=== PATIENT | female | born 1940 | race Caucasian/White ===

== ENCOUNTER 2019-10-17 07:42 | Observation (INO) | payer MEDICARE, BC, SELFPAY ==
[2019-10-17] VITALS (9 sets, daily range): BP systolic 117–160; BP diastolic 56–80; PULSE 80–94; RESP 14–20; TEMP 36.2–37.1; O2SAT 90–97; BMI 31.5
--- NOTE | ~2019-10-17 | XR_ITS ---
EXAMINATION: XR foot RT min 3V DATE: 10/18/2019 13:46 INDICATION: Dorsal pain, gout TECHNIQUE: Dorsoplantar, lateral, and 2 oblique views of the right foot were obtained. COMPARISON: Ankle radiograph from yesterday FINDINGS: Again noted is advanced osteoarthritis of the talonavicular joint. There is moderate osteoa rthritis at the calcaneal cuboid, first metatarsophalangeal, and tibiotalar joints. No fracture is id entified. The soft tissues are unremarkable. There is a plantar calcaneal enthesophyte. IMPRESSION: 1. Polyarticular osteoarthritis without acute findings. Reviewed, dictated and finalized at location A. RAMMING INTERN
--- NOTE | ~2019-10-17 | XR_ITS ---
EXAMINATION: XR ankle RT min 3V DATE: 10/17/2019 08:00 INDICATION: Right ankle pain and swelling TECHNIQUE: Anteroposterior, oblique, mortise, and lateral views of the right ankle were obtained. COMPARISON: None. FINDINGS: There is loss of bone stock along the inferior and lateral aspects of the navicula with advanced oste oarthritis at the talonavicular joint. Unclear whether the destructive change of the bone or subluxat ion or secondary to the osteoarthritis or the osteoarthritis or secondary to chronic fracture or jhonny lignment. Additional less severe mild to moderate osteoarthritis at multiple additional joints includ ing the ankle, calcaneocuboid and first metatarsophalangeal joints. No acute fracture. Small plantar calcaneal spur. Small heterotopic ossicle versus phlebolith along the lateral margin of the lateral m alleolus. IMPRESSION: 1. No acute osseous abnormality. 2. Polyarticular osteoarthritis, advanced at the talonavicular joint. Reviewed, dictated and finalized at location A. ID GROWER
--- NOTE | 2019-10-17 08:09 | ED.LOWEXIN ---
HPI - Extremity Injury (Lower) General Chief Complaint: Extremity Injury, Lower Stated Complaint: ankle pain Time Seen by Provider: 10/17/19 07:45 Source: patient and RN notes reviewed Mode of arrival: wheelchair Limitations: no limitations History of Present Illness HPI Narrative: Pt is a 79 y/o female presenting to the ED c/o ankle pain. Pt reports she woke up this morning at 0300 with severe rt ankle pain. Pt states she was exercising yesterday but denies any known injury to her rt ankle. Pt states he pain has alleviated since its onset this morning but currently rates it at an 8/10 on the pain scale. Pt also reports rt ankle erythema. Pt notes she applied CBD lotion to her skin to no relief on her pain. Pt states she is currently taking Eliquis. Pt states she has a Hx of previous rt ankle Fx. Onset (ago): hour(s) (5) Injury: Right: ankle Type of Injury: unknown Place: home Other symptoms: other (Rt ankle erythema) Related Data Home Medications Medication Instructions Recorded Confirmed allopurinol 150 mg PO BID 10/17/19 apixaban [Eliquis] mg 10/17/19 aspirin 10/17/19 carvedilol 10/17/19 empagliflozin [Jardiance] mg 10/17/19 folic acid 10/17/19 glipizide mg 10/17/19 losartan 10/17/19 metformin mg PO 10/17/19 simvastatin mg 10/17/19 spironolactone 10/17/19 Allergies Allergy/AdvReac Type Severity Reaction Status Date / Time codeine Allergy Unknown Other Verified 10/17/19 07:53 Review of Systems Review of Systems: All systems reviewed & are unremarkable except as noted in HPI and below Musculoskeletal: Musculoskeletal: Reports other (Rt ankle pain) Integumentary/Breasts: Skin/Breast: Reports erythema (Rt ankle) PMFSH Past Medical History Medical History A-fib Anemia Ankle fracture, right Arthritis Asthma Breast cancer Diabetes mellitus Diverticulitis Gout History of chemotherapy HLD (hyperlipidemia) HTN (hypertension) Ulcer Surgical History Surgical History H/O cardiac catheterization H/O lumpectomy Rt H/O: hysterectomy History of genitourinary surgery Bladder repair Status post ORIF of fracture of ankle Rt Family History Family History Other Cerebrovascular accident Family history of arthritis Family history of cardiovascular disease Hypertension Social History Social History Alcohol intake: current Exam Const: General: healthy appearing, no acute distress and alert Nutritional Appearance: well nourished HENMT: Mouth: Yes lip normal Eyes: Conjunctivae: conjunctivae normal Resp: Effort & Inspection: normal respiratory effort Back/Spine/Pelvis: Other: Full ROM Skin: General skin exam: normal color Other: Warm; Dry Neuro: General: patient oriented x3 Speech: normal speech Extrem: Left lower extremity: foot (Swelling and tenderness over dorsal aspect of mid foot with minimal redness) Psych: Mental Status: mental status grossly normal Affect: normal affect Course Consultations Consultation #1: Discussed case with Hospitalist EPIDEMIOLOGIST Debbie Basurto. Accepted the pt for admission. Date: 10/17/19 Time: 13:45 Vital Signs Vital signs: Vital Signs Temperature 36.9 C 10/17/19 07:45 Pulse Rate 80 10/17/19 07:45 Respiratory Rate 18 10/17/19 07:45 Blood Pressure 160/80 H 10/17/19 07:45 Pulse Oximetry 97 10/17/19 07:45 Temperature 36.3 C L 10/17/19 15:13 Pulse Rate 88 10/17/19 15:13 Respiratory Rate 14 10/17/19 15:13 Blood Pressure 138/61 10/17/19 15:13 Pulse Oximetry 93 10/17/19 15:13 MDM - Extremity Injury (Lower) MDM Narrative Medical decision making narrative: Attempted to get the patient ready for discharge. She was unable to ambulate or even bear weight on the affected foot. She will need to be admitted for observation due to decreased m
[2019-10-17] MEDS: TRAMADOL HCL 50 MG TABLET PO (09:13)
[2019-10-17 13:21] LABS: Basophils Percent Auto 0.4 % (0.2-1.2); Eosinophils Percent Auto 0.4 % (0-4.4); Hematocrit 37.1 % (37.0-47.0); Hemoglobin 11.6 g/dL (12.0-15.0); Immature Granulocyte Absolute 0.03 K/mm3 (0.00-0.031); Immature Granulocyte Percent A 0.4 % (0-0.5); Lymphocytes Absolute Auto 1.16 K/mm3 (0.9-3.2); Lymphocytes Percent Auto 13.6 % (18.3-44.2); Mean Corpuscular HGB Conc 31.3 g/dl (32-36); Mean Corpuscular Hemoglobin 27.8 pg (26-34); Mean Corpuscular Volume 88.8 fl (80-100); Mean Platelet Volume 9.6 fl (7.4-10.4); Monocytes Absolute Auto 0.8 K/mm3 (0.1-0.6); Monocytes Percent Auto 9.5 % (2.6-8.5); Neutrophils Absolute Auto 6.5 K/mm3 (1.3-6.7); Neutrophils Percent Auto 75.7 % (45.5-73.1); Platelet Count Result 236 k/mm3 (150-375); Red Blood Count 4.18 M/mm3 (4.2-5.4); Red Cell Distribution Width 13.8 % (11.5-14.5); White Blood Count 8.6 K/mm3 (4.5-10.0)
[2019-10-17] MEDS: methylPREDNISolone SOD SUCC 125 MG VIAL IV PUSH (13:22)
[2019-10-17 13:35] LABS: Blood Urea Nitrogen 21 mg/dL (7-17); Calcium 9.7 mg/dL (8.4-10.2); Carbon Dioxide 25 mmol/L (22-30); Chloride 97 mmol/L (98-107); Estimated CRCL calculation 50 ml/min; Estimated Glomerular Filt Rate > 60; Glucose 249 mg/dL (65-105); Potassium 4.3 mmol/L (3.4-5.0); Sodium 139 mmol/L (137-145); Uric Acid 5.1 mg/dL (2.5-7.5)
--- NOTE | 2019-10-17 16:12 | PC.NURSE ---
Pt admitted from the ER to room 253,resting in bed without any complaints. Call light in reach.
[2019-10-17 17:12] LABS: Glucose Point of Care 252 (65-105)
[2019-10-17 21:33] LABS: Glucose Point of Care 350 (65-105)
[2019-10-17] MEDS: INSULIN ASPART (*BKC) 100 UNITS/ML 10 UNITS SUB-Q (22:09)
--- NOTE | 2019-10-17 23:07 | PM.IMHP ---
H&P: HPI History of Present Illness Chief complaint: gout Narrative: Cynthia Mcqueen is a 79 year old female who has a past medical history of gout is on allopurinol. The patient stated that she went to the gym yesterday and rode a recumbent bike for about 2 hours. The patient states that she wears fausto she use and is usually pretty good for feet. The patient stated that she woke up at 3:00 a.m. this morning was having severe pain on top of the right foot by her ankle. She has had a history of having a right ankle fracture in the past but not recently. Patient stated that she had a red great toe of few months ago which he thought was gout as well. Patient had an x-ray today that shows arthritis no acute osseous abnormality. Polyarticular osteoarthritis. Patient was started on prednisone she was given IV Solu-Medrol 1st. She said that it is less red than what it was when she came into the emergency room. However the patient stated that she absolutely could not go home because she was unable to walk on the right foot. I suggested that the patient be given crutches and sent home on medication. However the patient insisted that she would not be able to tolerate this at home and she was in severe pain. ED physician was concerned that the patient could possibly fall if she went home and was unable to ambulate on that right foot. Patient was admitted as observation. She is already having less pain and less redness. Date of service 10/17/2019. Fentanyl in the emergency room and tramadol. She was also given insulin for high blood sugar in the 300s. Review of Systems Review of Systems: All systems reviewed & are unremarkable except as noted in HPI and below Constitutional: Constitutional: Reports as per HPI and Reports no additional constitutional complaints Eyes: Eyes: Reports as per HPI and Reports no additional eye complaints ENT: Reports system reviewed and no additional complaints, except as documented and Reports Normal hearing present Cardiovascular: Cardiovascular: Reports no additional cardiovascular complaints Respiratory: Respiratory: Reports no additional respiratory complaints and Reports no additional respiratory complaints Gastrointestinal: Gastrointestinal: Reports as per HPI and Reports no additional gastrointestinal complaints Musculoskeletal: Musculoskeletal: Reports no additional musculoskeletal complaints Integumentary/Breasts: Skin/Breast: Reports system reviewed and no additional complaints, except as docu and Reports as per HPI Neurologic: Reports system reviewed and no additional complaints, except as documented, Reports as per HPI and Reports Normal hearing present Psychiatric: Psychiatric: Reports no additional psychiatric complaints and Reports as per HPI Endocrine: Endocrine: Reports no additional endocrine complaints Hematologic/Lymphatic: Hematologic/Lymphatic: Reports no additional hematologic/lymphatic complaints Allergic/Immunologic: Allergic/Immunologic: Reports no additional allergic/immunologic complaints [facility] Past Medical History Medical History (Updated 10/17/19 @ 23:20 by Debbie Basurto NP) A-fib Paroxysmal Anemia Ankle fracture, right ORIF Arthritis Asthma Breast cancer Status post lumpectomy. Chemo and radiation. Chemotherapy-induced neuropathy Congestive heart failure Diabetes mellitus Diverticulitis Gout History of chemotherapy With breast cancer HLD (hyperlipidemia) HTN (hypertension) Ulcer Surgical History Surgical History (Updated 10/17/19 @ 23:14 by Debbie Basurto NP) H/O cardiac catheterization No intervention H/O lumpectomy Rt H/O: hysterectomy History of genitourinary surgery Bladder repair Status post ORIF of fracture of ankle Rt Family History Family History (Updated 10/17/19 @ 23:15 by Debbie Basurto NP) Mother Alzheimer's dementia Cerebrovascular accident Hypertension Father Lymphoma Cerebrovascular accident Hypert
[2019-10-17] MEDS: carvediloL 6.25 MG TABLET PO (23:43)
[2019-10-17] MEDS: APIXABAN 5 MG TABLET PO (23:43)
[2019-10-17] MEDS: allopurinoL 100 MG TABLET PO (23:44)
[2019-10-17] MEDS: ONDANSETRON INJ 4 MG/2 ML VIAL IV PUSH (23:50)
[2019-10-17] MEDS: ACETAMINOPHEN 325 MG TABLET 650 MG PO (23:50)
[2019-10-18 00:05] LABS: Glucose Point of Care 287 (65-105)
[2019-10-18 05:59] VITALS: BP 129/67; PULSE 83; RESP 20; TEMP 36.4; O2SAT 94
[2019-10-18 06:00] LABS: Basophils Percent Auto 0.1 % (0.2-1.2); Hematocrit 35.1 % (37.0-47.0); Immature Granulocyte Absolute 0.04 K/mm3 (0.00-0.031); Immature Granulocyte Percent A 0.5 % (0-0.5); Lymphocytes Absolute Auto 0.76 K/mm3 (0.9-3.2); Lymphocytes Percent Auto 9.3 % (18.3-44.2); Mean Corpuscular HGB Conc 31.3 g/dl (32-36); Mean Corpuscular Hemoglobin 27.3 pg (26-34); Mean Corpuscular Volume 87.1 fl (80-100); Mean Platelet Volume 9.8 fl (7.4-10.4); Monocytes Absolute Auto 0.5 K/mm3 (0.1-0.6); Monocytes Percent Auto 6.6 % (2.6-8.5); Neutrophils Absolute Auto 6.8 K/mm3 (1.3-6.7); Neutrophils Percent Auto 83.5 % (45.5-73.1); Platelet Count Result 231 k/mm3 (150-375); Red Blood Count 4.03 M/mm3 (4.2-5.4); Red Cell Distribution Width 13.8 % (11.5-14.5); White Blood Count 8.2 K/mm3 (4.5-10.0)
[2019-10-18 06:18] LABS: Alanine Aminotransferase 18 U/L (4-35); Albumin Level 3.8 g/dL (3.5-5.1); Alkaline Phosphatase 67 U/L (38-126); Aspartate Amino Transferase 19 U/L (14-36); Bilirubin,Total 0.4 mg/dL (0.2-1.3); Blood Urea Nitrogen 27 mg/dL (7-17); Calcium 9.3 mg/dL (8.4-10.2); Carbon Dioxide 24 mmol/L (22-30); Chloride 98 mmol/L (98-107); Estimated CRCL calculation 50 ml/min; Estimated Glomerular Filt Rate > 60; Glucose 246 mg/dL (65-105); Magnesium 1.7 mg/dL (1.6-2.3); Potassium 4.2 mmol/L (3.4-5.0); Sodium 136 mmol/L (137-145)
[2019-10-18 07:26] LABS: Thyroid Stimulating Hormone Reflex 0.679 uIU/mL (0.465-4.68)
[2019-10-18 07:51] LABS: Glucose Point of Care 215 (65-105)
[2019-10-18 08:00] VITALS: PULSE 83; RESP 20; O2SAT 94
[2019-10-18] MEDS: MICONAZOLE NITRATE 2% CREAM 30 GM TUBE 1 APPLIC TOPICAL ×2 (08:18→17:02)
[2019-10-18] MEDS: FAMOTIDINE 20 MG/2 ML VIAL IV PUSH (08:18)
[2019-10-18] MEDS: FOLIC ACID 1 MG TABLET PO (08:19)
[2019-10-18] MEDS: ASPIRIN 81 MG CHEWABLE TABLET PO (08:19)
[2019-10-18] MEDS: glipiZIDE 5 MG TABLET 10 MG PO ×2 (08:19→16:57)
[2019-10-18] MEDS: predniSONE 20 MG TABLET 60 MG PO (08:19)
[2019-10-18] MEDS: SPIRONOLACTONE 25 MG TABLET PO (08:20)
[2019-10-18] MEDS: allopurinoL 100 MG TABLET PO ×2 (08:20→16:57)
[2019-10-18] MEDS: carvediloL 6.25 MG TABLET PO ×2 (08:20→16:57)
[2019-10-18] MEDS: SIMVASTATIN 20 MG TABLET PO (08:20)
[2019-10-18] MEDS: APIXABAN 5 MG TABLET PO ×2 (08:20→16:57)
[2019-10-18] MEDS: LOSARTAN POTASSIUM 50 MG TABLET PO (08:20)
[2019-10-18] MEDS: metFORMIN HCL XR 500 MG TAB.SR.24H 1000 MG PO ×2 (08:20→16:57)
[2019-10-18] MEDS: INSULIN ASPART (*BKC) 100 UNITS/ML SUB-Q ×3 (08:21→16:59)
[2019-10-18] MEDS: ACETAMINOPHEN 325 MG TABLET 650 MG PO (11:27)
[2019-10-18 12:55] LABS: Glucose Point of Care 358 (65-105)
--- NOTE | 2019-10-18 13:55 | PM.IMPN ---
Subjective Date/time seen: 10/18/19 0900 Objective Data Vital Signs Vital Signs: Vital Signs - 24 hr 10/17/19 14:35 10/17/19 15:13 10/17/19 17:17 Temperature 97.5 F L 97.3 F L 97.9 F Pulse Rate 85 88 80 Respiratory Rate 16 14 16 Blood Pressure 134/56 L 138/61 143/64 H Pulse Oximetry 93 93 94 10/17/19 22:00 10/17/19 23:43 10/18/19 05:59 Temperature 97.2 F L 97.6 F Pulse Rate 89 89 83 Respiratory Rate 20 20 Blood Pressure 132/69 129/67 Pulse Oximetry 90 94 10/18/19 08:00 Temperature Pulse Rate 83 Respiratory Rate 20 Blood Pressure Pulse Oximetry 94 Intake/Output Intake/Output: Intake & Output 10/15/19 10/16/19 10/17/19 10/18/19 23:59 23:59 23:59 23:59 Intake Total 430 Output Total 400 Balance -400 430 Meds/Results Medications: Active Medications Generic Name Dose Route Start Last Admin Trade Name Freq PRN Reason Stop Dose Admin Acetaminophen 650 mg 10/17/19 23:42 10/18/19 11:27 Tylenol Tablet PO 650 mg Q4H PRN Administration Mild Pain (1-3) or Fever Allopurinol 100 mg 10/17/19 23:10 10/18/19 08:20 Zyloprim PO 100 mg BID DEISI Administration Apixaban 5 mg 10/17/19 23:15 10/18/19 08:20 Eliquis PO 5 mg BID DEISI Administration Aspirin 81 mg 10/18/19 09:00 10/18/19 08:19 Aspirin Chewable PO 81 mg DAILY DEISI Administration Carvedilol 6.25 mg 10/17/19 23:15 10/18/19 08:20 Coreg PO 6.25 mg BID DEISI Administration Cyclosporine 1 drop 10/17/19 23:05 10/18/19 08:20 Restasis EACH EYE 1 drop Q12HR DEISI Administration Dextrose 12.5 gm 10/17/19 23:21 Dextrose 50% Syringe IV PUSH PRN PRN Hypoglycemia Protocol Famotidine 20 mg 10/18/19 09:00 10/18/19 08:18 Pepcid Iv IV PUSH 20 mg Q12HR DEISI Administration Fentanyl Citrate 50 mcg 10/17/19 13:46 Sublimaze IV PUSH Q2H PRN Pain Rated 7-10 Folic Acid 1 mg 10/18/19 09:00 10/18/19 08:19 Folic Acid PO 1 mg DAILY [facility] Administration Glipizide 10 mg 10/18/19 09:00 10/18/19 08:19 Glucotrol PO 10 mg BID DEIIS Administration Glucagon 1 mg 10/17/19 23:21 Glucagon For Inj IM PRN PRN Hypoglycemia Protocol Glucose 15 gm 10/17/19 23:21 Glutose 15 PO PRN PRN Hypoglycemia Protocol Dextrose 1,000 mls @ 100 mls/hr 10/17/19 23:21 Dextrose 5% 1,000 Ml IVPB PRN PRN Hypoglycemia Protocol Insulin Aspart 3 - 6 units 10/18/19 08:00 10/18/19 12:48 Novolog SUB-Q 6 units TIDWM [facility] Administration Protocol Losartan Potassium 50 mg 10/18/19 09:00 10/18/19 08:20 Cozaar PO 50 mg DAILY [facility] Administration Metformin HCl 1,000 mg 10/18/19 09:00 10/18/19 08:20 Glucophage Xr PO 1,000 mg BID [facility] Administration Miconazole Nitrate 1 applic 10/18/19 09:00 10/18/19 08:18 Miconazole Nitrate 2% Cream TOPICAL 1 applic BID [facility] Administration Non-Formulary Medication 10 mg 10/18/19 09:00 Empagliflozin [Jardiance] PO 11/17/19 09:01 DAILY [facility] Ondansetron HCl 4 mg 10/17/19 23:35 10/17/19 23:50 Zofran Inj IV PUSH 4 mg Q4H PRN Administration Nausea And Vomiting Prednisone 60 mg 10/18/19 08:00 10/18/19 08:19 Prednisone PO 60 mg DAILY@08 [facility] Administration Simvastatin 20 mg 10/18/19 09:00 10/18/19 08:20 Zocor PO 20 mg DAILY [facility] Administration Spironolactone 25 mg 10/18/19 09:00 10/18/19 08:20 Aldactone PO 25 mg DAILY [facility] Administration Radiology Results: ITS Impressions Ankle X-Ray 10/17/19 08:01 IMPRESSION: 1. No acute osseous abnormality. 2. Polyarticular osteoarthritis, advanced at the talonavicular joint. Labs Labs: Laboratory Results - last 24 hr 10/17/19 10/17/19 10/17/19 17:09 21:24 23:47 WBC RBC Hgb Hct MCV MCH MCHC RDW Plt Count MPV Immature Gran % (Auto) Neut % (Auto) Lymph % (Auto) Mo
[2019-10-18 14:00] VITALS: BP 98/46; PULSE 73; RESP 12; TEMP 36; O2SAT 100
[2019-10-18 17:23] LABS: Glucose Point of Care 316 (65-105)
--- NOTE | 2019-10-18 19:27 | PM.DS ---
DS: Diagnosis Admitting Diagnosis Admitting Diagnosis: Gout, unspecified Discharge Diagnosis (1) Gout: Qualifiers: Gout site: ankle Gout etiology: unspecified cause Laterality: right Chronicity: acute Qualified Code(s): M10.9 - Gout, unspecified Code(s): M10.9 - Gout, unspecified Status: Acute Assessment and Plan: Date of Service 10/18/19: Ms. Demetrio Mcqueen is a 79yo F with history of gout, osteoarthritis, hypertension, atrial fibrillation, and non insulin dependent type 2 diabetes mellitus who presented to the ED for evaluation of right ankle pain, redness, and swelling. She was admitted for observation as she felt that she could not discharge home from the ED due to pain and difficulty ambulating. She was treated with IV solu-medrol in the ED then started on oral prednisone. The following morning she noted the pain, redness and swelling was improved but she was still having difficulty walking. She declined crutches due to a previous shoulder injury. She reported she lives at home with her and has a walker at home she can use. She is known to take allopurinol and her uric acid level was within normal limits. Imaging of the right ankle and foot showed polyarticular osteoarthritis without acute osseous abnormalities. She is known to take Eliquis due to A fib, therefore not a great candidate for treatment with NSAIDs. She worked with physical therapy and walked contact guard in the room. Blood sugars were elevated, likely secondary to steroid use, and treated with sliding scale insulin. She was hemodynamically stable for discharge 10/18/19 with instructions for short-interval follow up with PCP this week. She was noted to have 2 prescriptions already on her discharge paperwork from the ED provider, as she was initially about to be discharged from the ED before the decision was made for her to admit to observation. She was instructed to use those scripts (medrol dose pack and tramadol) from the ED provider and follow up with PCP. Dx: Acute on chronic gout, right ankle (2) Osteoarthritis of ankle and foot: Qualifiers: Laterality: right Qualified Code(s): M19.071 - Primary osteoarthritis, right ankle and foot Code(s): M19.079 - Primary osteoarthritis, unspecified ankle and foot Status: Chronic (3) HLD (hyperlipidemia): Qualifiers: Hyperlipidemia type: unspecified Qualified Code(s): E78.5 - Hyperlipidemia, unspecified Code(s): E78.5 - Hyperlipidemia, unspecified Status: Chronic Assessment and Plan: Continue with simvastatin. (4) HTN (hypertension): Qualifiers: Hypertension type: essential hypertension Qualified Code(s): I10 - Essential (primary) hypertension Code(s): I10 - Essential (primary) hypertension Status: Chronic Assessment and Plan: Continue with Aldactone losartan and Coreg (5) A-fib: Qualifiers: Atrial fibrillation type: paroxysmal Qualified Code(s): I48.0 - Paroxysmal atrial fibrillation Code(s): I48.91 - Unspecified atrial fibrillation Status: Chronic Assessment and Plan: Maintained on home coreg and Eliquis. Rate controlled. (6) Congestive heart failure: Qualifiers: Heart failure type: unspecified Heart failure chronicity: unspecified Qualified Code(s): I50.9 - Heart failure, unspecified Code(s): I50.9 - Heart failure, unspecified Status: Chronic Assessment and Plan: Continue with Aldactone and Coreg (7) Diabetes mellitus: Qualifiers: Diabetes mellitus type: type 2 Diabetes mellitus usp insulin use: without usp use Diabetes mellitus complication status: without complication Qualified Code(s): E11.9 - Type 2 diabetes mellitus without complications Code(s): E11.9 - Type 2 diabetes mellitus without complications Status: Chronic Assessment and Plan: Treated with her home metformin
== END 2019-10-18 19:02 | disposition home or self-care (01) ==
LOC: ANHED 13:59 → ANH2MED 15:19
PROVIDERS: Nurse Practitioner; Admitting Provider Internal Medicine; Emergency Provider Emergency Medicine; Visit Provider Physician Assistant
DX: M10.9 Gout, unspecified (principal); M19.071 Primary osteoarthritis, right ankle and foot; E78.5 Hyperlipidemia, unspecified; I11.0 Hypertensive heart disease with heart failure; I50.9 Heart failure, unspecified; I48.0 Paroxysmal atrial fibrillation; E11.9 Type 2 diabetes mellitus without complications; D64.9 Anemia, unspecified; G62.0 Drug-induced polyneuropathy; T45.1X5S Adverse effect of antineoplastic and immunosuppressive drugs, sequela; Z79.01 Long term (current) use of anticoagulants; Z79.82 Long term (current) use of aspirin; Z79.84 Long term (current) use of oral hypoglycemic drugs; Z79.899 Other long term (current) drug therapy; Z85.3 Personal history of malignant neoplasm of breast; Z87.81 Personal history of (healed) traumatic fracture
CPT/HCPCS: 36415; 73610; 73630; 80048; 80053; 83735; 84443; 84550; 85025; 96374; 96375; 97161; 97165; 99285; A9270; G0378; J1815; J2405; J2930; J3010; J7512

== ENCOUNTER → 2019-12-15 12:20 | Outpatient (CLI) | payer MEDICARE, BC, SELFPAY ==
--- NOTE | ~2019-12-15 | XR_ITS ---
EXAMINATION: XR ankle LT min 3V DATE: 12/15/2019 12:37 INDICATION: Left ankle contusion TECHNIQUE: Anteroposterior, oblique, mortise, and lateral views of the left ankle were obtained. COMPARISON: None. FINDINGS: Alignment is normal. No fracture. Mild osteoarthritis at the tarsal metatarsal joints. Soft tissue sw elling about the ankle overlying both the medial and lateral malleoli. Increased density anterior to the tibiotalar joint line suggesting presence of an ankle joint effusion. Small plantar calcaneal spu r. IMPRESSION: 1. Likely left ankle joint effusion. No acute osseous abnormality. Reviewed, dictated and finalized at location A.
== END ==
PROVIDERS: PCP Family Medicine; Visit Provider Family Medicine
DX: S90.02XA Contusion of left ankle, initial encounter (principal); X58.XXXA Exposure to other specified factors, initial encounter
CPT/HCPCS: 73610

== ENCOUNTER 2020-02-17 09:36 | Outpatient (CLI) | payer MEDICARE, BC, SELFPAY ==
--- NOTE | ~2020-02-17 | DEXA_ITS ---
Bone Density Report Name: Cynthia Sotelo Age: 80 Sex: Female Ethnicity: White Date of : 1940 Indication: postmenopausal; height loss; prior fracture; cancer; asthma or emphysema; hysterectomy; Referring Provider: PHYSICIAN NOT ON STAFF Study: Bone densitometry was performed. Exam Date: February 17, 2020 Accession number: [id number] Bone Density: Region BMD T-score Z-score Classification AP Spine (L1, L2) 1.344 3.3 5.7 Normal Femoral Neck (Left) 0.801 -0.4 1.8 Normal Total Hip (Left) 0.967 0.2 2.2 Normal Total Hip Bilateral Avg 0.945 0.0 2.0 Normal Femoral Neck (Right) 0.774 -0.7 1.5 Normal Total Hip (Right) 0.922 -0.2 1.8 Normal World Health Organization criteria for BMD impression classify patients as: Normal (T-score at or above -1.0), Osteopenia (T-score between -1.0 and -2.5), or Osteoporosis (T-score at or below -2.5). 10-year Fracture Risk: FRAX not reported because: All T-scores for Spine Total, Hip Total, Femoral Neck at or above -1.0 Previous Exams: Region Exam Age BMD T-score BMD Change BMD Change Date g/cm2 vs Baseline vs Previous AP Spine(L1, L2) 02/17/2020 80 1.344 3.3 0.149(12.5%)# -0.011(-0.8%) 02/13/2018 78 1.355 3.4 0.160(13.4%)# 0.127(10.3%)* 05/17/2015 75 1.228 2.3 0.033(2.8%)# -0.002(-0.1%)# 04/19/2011 71 1.230 2.3 0.035(2.9%)* 0.000(0.0%) 04/18/2009 69 1.230 2.3 0.035(2.9%)* -0.034(-2.7%)* 02/25/2007 67 1.264 2.6 0.069(5.8%)* 0.039(3.1%)* 12/09/2003 63 1.225 2.2 0.030(2.5%)* 0.030(2.5%)* 09/01/2001 61 1.195 2.0 Total Hip(Left) 02/17/2020 80 0.967 0.2 -0.147(-13.2%) -0.048(-4.7%)* 02/13/2018 78 1.015 0.6 -0.099(-8.9%)# -0.058(-5.4%)* 05/17/2015 75 1.072 1.1 -0.041(-3.7%)# 0.014(1.3%)# 04/19/2011 71 1.059 1.0 -0.055(-5.0%)* -0.015(-1.4%) 04/18/2009 69 1.074 1.1 -0.040(-3.6%)* -0.017(-1.5%) 02/25/2007 67 1.090 1.2 -0.024(-2.1%) -0.008(-0.8%) 12/09/2003 63 1.099 1.3 -0.015(-1.4%) -0.015(-1.4%) 09/01/2001 61 1.114 1.4 Total Hip(Right) 02/17/2020 80 0.922 -0.2 -0.205(-18.2%) -0.054(-5.6%)* 02/13/2018 78 0.976 0.3 -0.151(-13.4%) 0.007(0.7%) 05/17/2015 75 0.970 0.2 -0.157(-14.0%) -0.076(-7.2%)# 04/19/2011 71 1.045 0.8 -0.082(-7.3%)* 0.013(1.3%) 04/18/2009 69 1.032 0.7 -0.095(-8.4%)* -0.061(-5.6%)* 02/25/2007 67 1.093 1.2 -0.034(-3.0%)* -0.011(-1.0%) 12/09/2003 63 1.104 1.3 -0.023(-2.1%) -0.023(-2.1%) 09/01/2001 61 1.127 1.5
== END 2020-02-17 09:37 | disposition home or self-care (01) ==
LOC: ANHIMG 09:48
PROVIDERS: PCP Family Medicine
DX: C50.911 Malignant neoplasm of unspecified site of right female breast (principal); Z17.1 Estrogen receptor negative status [ER-]; Z79.899 Other long term (current) drug therapy; Z78.0 Asymptomatic menopausal state; S82.891D Other fracture of right lower leg, subsequent encounter for closed fracture with routine healing; X58.XXXD Exposure to other specified factors, subsequent encounter; Z85.3 Personal history of malignant neoplasm of breast; Z90.710 Acquired absence of both cervix and uterus; Z92.29 Personal history of other drug therapy
CPT/HCPCS: 77080

== ENCOUNTER 2022-03-20 12:19 | Outpatient (CLI) | payer MEDICARE, SELFPAY ==
--- NOTE | ~2022-03-20 | DEXA_ITS ---
Bone Density Report Name: LAZARO MICHELLE Age: 82 Sex: Female Ethnicity: White Date of : 1940 Indication: postmenopausal; screening for osteoporosis; height loss; prior fracture; hysterectomy; Referring Provider: LEIAOSCAR Study: Bone densitometry was performed. Exam Date: March 20, 2022 Accession number: [id number] Bone Density: Region BMD T-score Z-score Classification AP Spine(L1, L2) 1.348 3.4 5.9 Normal Femoral Neck (Left) 0.773 -0.7 1.6 Normal Total Hip (Left) 0.956 0.1 2.2 Normal Femoral Neck (Right) 0.764 -0.8 1.5 Normal Total Hip (Right) 0.924 -0.1 1.9 Normal Total Hip Mean 0.940 0.0 2.1 Normal World Health Organization criteria for BMD impression classify patients as: Normal (T-score at or above -1.0), Osteopenia (T-score between -1.0 and -2.5), or Osteoporosis (T-score at or below -2.5). 10-year Fracture Risk: FRAX not reported because: All T-scores for Spine Total, Hip Total, Femoral Neck at or above -1.0 Previous Exams: Region Exam Age BMD T-score BMD Change BMD Change Date g/cm2 vs Baseline vs Previous AP Spine (L1-L2) 03/20/2022 82 1.348 3.4 0.119 (9.7%)* 0.004 (0.3%) 02/17/2020 80 1.344 3.3 0.116 (9.4%)* -0.011 (-0.8%) 02/13/2018 78 1.355 3.4 0.127 (10.3%)* 0.127 (10.3%)* 05/17/2015 75 1.228 2.3 Total Hip(Left) 03/20/2022 82 0.956 0.1 -0.116 (-10.8% -0.010 (-1.1%) 02/17/2020 80 0.967 0.2 -0.106 (-9.9%) -0.048 (-4.7%) 02/13/2018 78 1.015 0.6 -0.058 (-5.4%) -0.058 (-5.4%) 05/17/2015 75 1.072 1.1 Total Hip(Right) 03/20/2022 82 0.924 -0.1 -0.045 (-4.7%) 0.002 (0.3%) 02/17/2020 80 0.922 -0.2 -0.048 (-4.9%) -0.054 (-5.6%) 02/13/2018 78 0.976 0.3 0.007 (0.7%) 0.007 (0.7%) 05/17/2015 75 0.970 0.2 *Denotes significance at 95% confidence level, LSC for AP Spine = 0.022 g/cm2, LSC for Total Hip = 0.027 g/cm2 Clinical Information Provided by Patient: Has had a low trauma fracture Has the following medical conditions: Hysterectomy Patient maximum height was 65 Menopause Age: 54 Onset of menses at age 15 Number of children 2 Impression: The patient has normal bone mass. The patient has risk factors, including: previous fracture. No significant bone loss was observed. Discussion: BONE DENSITY IS ABOVE THE MINIMUM DESIRABLE LEVEL AT ALL SKELETAL SITES TESTED. This patient?s bone mineral density is above the
== END 2022-03-20 12:20 | disposition home or self-care (01) ==
PROVIDERS: PCP Family Medicine; Visit Provider Internal Medicine Medical Oncology
DX: Z78.0 Asymptomatic menopausal state (principal); Z92.29 Personal history of other drug therapy
CPT/HCPCS: 77080

== ENCOUNTER 2023-07-01 08:10 | Emergency (ER) | payer MEDICARE, SELFPAY ==
--- NOTE | ~2023-07-01 | CT_ITS ---
EXAMINATION: CT abdomen pelvis w con DATE: 07/01/2023 09:52 INDICATION: Left lower quadrant abdominal pain. Vomiting. TECHNIQUE: Computed tomography (CT) of the abdomen and pelvis was performed with 100 mL Omnipaque 350 intravenous contrast. Automated exposure control and iterative reconstruction technique were employe d. The dose-length product was 796.24 mGy-cm. COMPARISON: None. FINDINGS: The visualized portions of the lung bases demonstrate mild atelectasis and mild chronic harish g disease. There is a pneumatocele in right lower lobe. No pleural effusion. The heart size is normal . There are coronary artery calcifications. No pericardial effusion. There are surgical changes in ri ght breast. The liver, gallbladder, spleen, pancreas, and adrenal glands are normal. There is cortica l thinning of the kidneys. There is a right inguinal hernia containing fat. There is wall thickening of the rectosigmoid, consistent with colitis. There are scattered diverticula in the colon. The appen kenroy is not visualized. Aortic atherosclerosis is noted. There is a small sliding hiatal hernia. There are no pathologically enlarged lymph nodes. There is no free intraperitoneal fluid. There is lumbar levoscoliosis and severe spondylosis. IMPRESSION: 1. Wall thickening of the rectosigmoid, consistent with colitis. Reviewed, dictated and finalized at location E.
[2023-07-01 08:15] VITALS: BP 130/61; PULSE 68; RESP 16; TEMP 36.1; O2SAT 100
[2023-07-01 08:18] VITALS: BP 130/61; PULSE 72; RESP 18; O2SAT 99
[2023-07-01] MEDS: ONDANSETRON INJ 4 MG/2 ML VIAL IV PUSH (08:29)
[2023-07-01] MEDS: SODIUM CHLORIDE 0.9% IV 1,000 ML 999 ML IV CONT (08:31)
[2023-07-01 08:34] VITALS: BP 108/57; PULSE 65; RESP 20; O2SAT 96
[2023-07-01 08:38] LABS: Basophils Absolute Auto 0.1 K/mm3 (0.0-0.1); Basophils Percent Auto 0.6 % (0.2-1.2); Eosinophils Absolute Auto 0.2 K/mm3 (0-0.3); Eosinophils Percent Auto 2.4 % (0-4.4); Hematocrit 37.4 % (37.0-47.0); Hemoglobin 11.1 g/dL (12.0-15.0); Immature Granulocyte Absolute 0.05 K/mm3 (0.00-0.031); Immature Granulocyte Percent A 0.6 % (0-0.5); Lymphocytes Absolute Auto 1.79 K/mm3 (0.9-3.2); Lymphocytes Percent Auto 22.5 % (18.3-44.2); Mean Corpuscular HGB Conc 29.7 g/dl (32-36); Mean Corpuscular Hemoglobin 27.8 pg (26-34); Mean Corpuscular Volume 93.7 fl (80-100); Mean Platelet Volume 9.5 fl (7.4-10.4); Monocytes Absolute Auto 0.7 K/mm3 (0.1-0.6); Monocytes Percent Auto 8.6 % (2.6-8.5); Neutrophils Absolute Auto 5.2 K/mm3 (1.3-6.7); Neutrophils Percent Auto 65.3 % (45.5-73.1); Platelet Count Result 205 k/mm3 (150-375); Red Blood Count 3.99 M/mm3 (4.2-5.4); Red Cell Distribution Width 17.2 % (11.5-14.5); White Blood Count 7.9 K/mm3 (4.5-10.0)
[2023-07-01 08:41] LABS: INR 1.3; Partial Thromboplastin Time 30.6 SECONDS (22.3-36.8); Prothrombin Time 17.4 Seconds (11.1-14.7)
[2023-07-01 08:47] VITALS: BP 101/50; PULSE 66; RESP 14; O2SAT 91
[2023-07-01 08:50] LABS: Anisocytosis 1+ (NORMAL); Platelet Estimate Adequate (Adequate); Schistocytes None Seen (NORMAL)
[2023-07-01 08:53] LABS: Appearance Urine Cloudy (Clear); Bacteria Urine None Seen /hpf; Bilirubin Urine Negative (Negative); Blood Urine Negative (Negative); Color Urine Dark Yellow (Yellow); Glucose Urine UA Negative (Negative); Ketones Urine Trace mg/dL (Negative); Leukocyte Esterase Ur Trace LEU/UL (Negative); Nitrate Urine Negative (Negative); Protein Urine 1+ mg/dL (Negative); RBC Urine 0-2 /hpf (0-2); Specific Grav Ur 1.025 (1.001-1.035); Squamous Epithelial Cell Urine Moderate /hpf (Few); Urobilinogen Urine 0.2 mg/dL (<2.0)
[2023-07-01 08:54] LABS: Add Urine Microscopic? YES
[2023-07-01 08:59] LABS: Need Manual Microscopic Reviewed
[2023-07-01 09:02] LABS: Lactic Acid Reflex 2.2 mmol/L (0.7-2.0)
[2023-07-01 09:03] LABS: Alanine Aminotransferase 15 U/L (6-35); Albumin Level 3.8 g/dL (3.5-5.1); Alkaline Phosphatase 81 U/L (38-126); Anion Gap 8 mmol/L (8-16); Aspartate Amino Transferase 21 U/L (14-36); Bilirubin,Total 0.4 mg/dL (0.2-1.3); Blood Urea Nitrogen 16 mg/dL (7-17); Calcium 9.5 mg/dL (8.4-10.2); Carbon Dioxide 24 mmol/L (22-30); Chloride 106 mmol/L (98-107); Estimated CRCL calculation 45 ml/min; Estimated Glomerular Filt Rate 60; Glucose 203 mg/dL (65-110); Lipase 112 U/L (23-300); Potassium 4.1 mmol/L (3.4-5.0); Sodium 138 mmol/L (137-145)
[2023-07-01 09:14] LABS: Troponin I < 0.012 ng/mL (0.000-0.034)
[2023-07-01 10:15] VITALS: BP 117/73; PULSE 69; RESP 20; O2SAT 98
--- NOTE | 2023-07-01 10:26 | ED.ABDPAIN ---
HPI - Abdominal Pain General Chief Complaint: Abdominal Pain Stated Complaint: abd pain Time Seen by Provider: 07/01/23 08:11 History of Present Illness HPI narrative: This is an 83-year-old female with history of A-fib and diabetes, brought in by EMS from home for abdominal pain. The patient states this morning, after taking a laxative, she had gradual increasing, sharp lower abdominal pain without radiation. By the time EMS arrived, she rated her pain 10/10. She states she recently started insulin and has had some constipation. Yesterday she started laxatives with loose stools and mild discomfort but has increased. She denies fevers, chills, shortness of breath or blood in stool. She denies vomiting. Related Data Home Medications Medication Instructions Recorded Confirmed allopurinol 100 mg tablet mg 07/01/23 apixaban 5 mg tablet (Eliquis) mg 07/01/23 aspirin 81 mg capsule mg 07/01/23 carvedilol 6.25 mg tablet mg 07/01/23 cyclosporine 0.05 % eye drops in a drp 07/01/23 dropperette (Restasis) ferrous sulfate 325 mg (65 mg mg 07/01/23 iron) tablet (FeroSul) glipizide 10 mg tablet mg 07/01/23 insulin glargine 100 subcut 07/01/23 unit-lixisenatide 33 mcg/mL subcutaneous pen (Soliqua 100/33) losartan 50 mg tablet mg 07/01/23 pen needle, diabetic 32 gauge x 07/01/23 07/01/23 5/32 (BD Nevin 2nd Gen Pen Needle) simvastatin 20 mg tablet mg 07/01/23 sitagliptin phosphate 50 mg tablet mg 07/01/23 (Januvia) spironolactone 25 mg tablet mg 07/01/23 tramadol 50 mg tablet mg 07/01/23 Allergies Allergy/AdvReac Type Severity Reaction Status Date / Time codeine AdvReac Unknown Verified 07/01/23 08:21 Review of Systems Review of Systems: CONSTITUTIONAL: Denies fever, chills, or sweats. CARDIOVASCULAR: Denies chest pain, palpitations, or edema. RESPIRATORY: Denies cough or dyspnea. GASTROINTESTINAL: Lower abdominal pain, loose stools denies nausea, vomiting, GENITOURINARY: Denies dysuria or hematuria. SKIN: Denies rash or itching. MUSCULOSKELETAL: Denies back pain, joint pain, or myalgia. NEUROLOGIC: Denies headache, numbness, dizziness, or weakness. PSYCHIATRIC: Denies anxiety or depression. PMFSH Past Medical History Medical History (Updated 07/01/23 @ 10:34 by Felix Aceves MD) A-fib Diabetes mellitus Hypertension Surgical History Surgical History (Updated 07/01/23 @ 10:29 by Felix Aceves MD) No significant past surgical history Social History Social History (Updated 07/01/23 @ 10:29 by Felix Aceves MD) Smoking status: Never smoker Alcohol intake: never Substance use: never Exam Narrative: GENERAL: Well-developed, well-nourished, in moderate distress due to pain HEAD: Normocephalic, atraumatic. EYES: PERRLA and EOMI. CHEST: Clear to auscultation. No respiratory distress. No wheezes rales or rhonchi HEART: Regular rate and rhythm. No murmur heard. Normal peripheral pulses. ABDOMEN: Soft, mild suprapubic tenderness to palpation, without rebound or guarding, nondistended, normal active bowel sounds. EXTREMITIES: Normal range of motion. No edema. SKIN: Warm, dry, no rash. NEURO: Alert and oriented x3. Moving all 4 limbs purposefully. PSYCH: Normal mood and affect. Course Course Emergency Course: 10:20 - White blood cell count within normal limits. Hemoglobin 11 with unknown baseline. Coags remarkable for slightly elevated PT of 17.4 but is otherwise unremarkable. Chemistries demonstrate mild hyperglycemia with glucose of 203 but is otherwise unremarkable. Lactic acid is slightly elevated at 2.2. Troponin negative. UA not concerning for UTI. CT abdomen pelvis demonstrates changes consistent with rectosigmoid colitis, but is otherwise unremarkable. No pain medications were ordered, the patient's pain quickly subsided and were not given. The patient had a bowel movement in the emergency department without pain. Considering nonconcerni
[2023-07-01 11:28] LABS: Reflex Lactic Acid Yes or No Add Lactic
--- NOTE | 2023-07-09 07:37 | PC.NURSE ---
Late entry 07/01/23 normal saline bolus infused 0930
== END 2023-07-01 10:51 | disposition home or self-care (01) ==
PROVIDERS: Emergency Provider Preventive Medicine Aerospace Medicine; PCP Family Medicine
DX: K52.9 Noninfective gastroenteritis and colitis, unspecified (principal); R10.33 Periumbilical pain; E11.9 Type 2 diabetes mellitus without complications; I48.91 Unspecified atrial fibrillation; I10 Essential (primary) hypertension; Z79.4 Long term (current) use of insulin; Z79.84 Long term (current) use of oral hypoglycemic drugs; Z79.01 Long term (current) use of anticoagulants; Z79.82 Long term (current) use of aspirin
CPT/HCPCS: 36415; 74177; 80053; 81001; 83605; 83690; 84484; 85025; 85610; 85730; 87086; 96361; 96374; 99284; J2405; J7030; Q9967

== ENCOUNTER 2023-10-17 10:13 | Outpatient (CLI) | payer MEDICARE, SELFPAY ==
--- NOTE | ~2023-10-17 | XR_ITS ---
Supine and upright views of the abdomen Clinical history: Fecal abnormalities Findings: Bowel gas pattern is nonspecific. No evidence for obstruction or free air. No abnormal mass lesion or calcification is seen. There is levoscoliosis of lumbar spine with degenerative spondyliti c change. Impression: Nonspecific bowel gas pattern. Reviewed, dictated and finalized at [facility]. NSE CLERK Impression: Nonspecific bowel gas pattern.
== END 2023-10-17 10:14 | disposition home or self-care (01) ==
PROVIDERS: PCP Family Medicine; Visit Provider Family Medicine
DX: R19.5 Other fecal abnormalities (principal)
CPT/HCPCS: 74018

== ENCOUNTER 2023-11-04 15:20 | Outpatient (CLI) | payer MEDICARE, SELFPAY ==
[2023-11-04 16:11] LABS: Hematocrit 41.7 % (37.0-47.0); Mean Corpuscular HGB Conc 31.2 g/dl (32-36); Mean Corpuscular Hemoglobin 31.3 pg (26-34); Mean Corpuscular Volume 100.2 fl (80-100); Mean Platelet Volume 9.5 fl (7.4-10.4); Platelet Count Result 181 k/mm3 (150-375); Red Blood Count 4.16 M/mm3 (4.2-5.4); Red Cell Distribution Width 13.5 % (11.5-14.5)
[2023-11-04 16:24] LABS: Alanine Aminotransferase 18 U/L (6-35); Albumin Level 4.1 g/dL (3.5-5.1); Alkaline Phosphatase 83 U/L (38-126); Anion Gap 3 mmol/L (8-16); Aspartate Amino Transferase 27 U/L (14-36); Bilirubin,Total 0.5 mg/dL (0.2-1.3); Blood Urea Nitrogen 18 mg/dL (7-17); CRP 1.5 mg/dL (<1.0); Calcium 9.8 mg/dL (8.4-10.2); Carbon Dioxide 33 mmol/L (22-30); Chloride 104 mmol/L (98-107); Estimated Glomerular Filt Rate 53; Glucose 126 mg/dL (65-110); Potassium 3.9 mmol/L (3.4-5.0); Sodium 140 mmol/L (137-145)
[2023-11-04 16:37] LABS: Erythrocyte Sedimentation Rate 47 mm/hr (0-20)
[2023-11-09 16:53] LABS: Immunoglobulin A 434 mg/dL (70-320); TTG IGA AB <1.0 U/mL (<15.0)
== END 2023-11-04 15:21 | disposition home or self-care (01) ==
LOC: ANHLAB 15:25
PROVIDERS: PCP Family Medicine; Visit Provider Nurse Practitioner
DX: K52.9 Noninfective gastroenteritis and colitis, unspecified (principal); M10.9 Gout, unspecified
CPT/HCPCS: 36415; 80053; 82784; 85027; 85652; 86140; 86364

== ENCOUNTER 2023-11-05 11:50 | Outpatient (CLI) | payer MEDICARE, SELFPAY ==
[2023-11-13 22:01] LABS: Calprotectin, Stool 251 mcg/g; Pancreatic Elastase, Stool 327 mcg/g
== END 2023-11-05 11:51 | disposition home or self-care (01) ==
LOC: ANHLAB 11:51
PROVIDERS: PCP Family Medicine; Visit Provider Nurse Practitioner
DX: K52.9 Noninfective gastroenteritis and colitis, unspecified (principal)
CPT/HCPCS: 82653; 83993; 87045; 87427; 87449; 87493

== ENCOUNTER 2023-11-08 17:01 | Outpatient (CLI) | payer MEDICARE, SELFPAY ==
[2023-11-08 16:29] LABS: Hematocrit 41.4 % (37.0-47.0); Hemoglobin 13.4 g/dL (12.0-15.0)
[2023-11-08 19:44] LABS: IFOB Positive Control Positive; Immunochemical Fecal Occult Bl Positive (N)
== END 2023-11-08 17:02 | disposition home or self-care (01) ==
PROVIDERS: PCP Family Medicine; Visit Provider Nurse Practitioner Family
DX: K92.1 Melena (principal)
CPT/HCPCS: 36415; 85014; 85018

== ENCOUNTER 2023-11-23 11:28 | Outpatient (CLI) | payer MEDICARE, SELFPAY ==
--- NOTE | ~2023-11-23 | MM_ITS ---
EXAMINATION: MM screening ney BI w asia HISTORY: Screening mammogram TECHNIQUE: Craniocaudal and mediolateral oblique 3-D tomosynthesis images were obtained and synthetic 2-D images were generated. CAD analysis was submitted and interpreted. COMPARISON: April 08, 2008 diagnostic right mammogram and right breast ultrasound examination 04/08/2008 bilateral screening mammogram BREAST PARENCHYMAL COMPOSITION: There are scattered areas of fibroglandular density. FINDINGS: There is postsurgical change at the posterior inner mid right breast at area of the previou s malignant mass noted on 04/08/2008 screening mammogram. Bilateral scattered benign calcifications. There is no evidence of suspicious mass, calcification, or architectural distortion otherwise to sug gest malignancy in either breast. There has been no suspicious interval new finding. IMPRESSION: 1. Status post right partial mastectomy for breast cancer. Scattered bilateral benign calcifications. No mammographic evidence of malignancy 2. Recommend routine screening mammography in one year. BI-RADS Category 2: Benign finding(s). Reviewed, dictated and finalized at location A.
== END 2023-11-23 11:29 | disposition home or self-care (01) ==
PROVIDERS: PCP Family Medicine; Visit Provider Physician Assistant
DX: Z12.31 Encounter for screening mammogram for malignant neoplasm of breast (principal)
CPT/HCPCS: 77063; 77067

== ENCOUNTER 2023-11-29 01:21 | Day surgery (SDC) | payer MEDICARE, SELFPAY ==
[2023-11-20 14:33] VITALS: BMI 29.2
--- NOTE | 2023-11-20 15:39 | PC.NURSE ---
Spoke with _ PATIENT_ regarding medication _ELIQUIS_. Pt. verbalizes understanding that the last dose of ELIQUIS is to be taken on 11/26/2023__ and the Endoscopist will instruct them when to restart after the procedure. Patient understands she does not have to stop Aspirin.
--- NOTE | 2023-11-27 10:26 | SUR.PREOP ---
Patient called regarding upcoming procedure. Voicemail left regarding appointment times.
[2023-11-29 09:11] VITALS: BP 116/74; PULSE 60; RESP 20; TEMP 36.2; O2SAT 97
[2023-11-29] MEDS: LACTATED RINGERS 1,000 ML 150 ML IV CONT (09:25)
[2023-11-29 09:27] LABS: Glucose Point of Care 234 mg/dl (65-105)
--- NOTE | 2023-11-29 09:36 | WPDANESEPPF ---
Anes - Initial Pre Proc Eval Procedure: Operation Date: 11/29/23 10:30 Proposed Procedures p Colonoscopy - Oli Serrano MD Date/Time: 11/29/23 09:36 Surgeon: Oli Serrano MD Pre Op Diagnosis: Other fecal abnormalities, diarrhea Patient Data Age: 83 Gender: F Height: 1.63 m Weight: 80.6 kg Last Vital Signs Temp 97.2 F L 11/29/23 09:11 Pulse 60 11/29/23 09:11 Resp 20 11/29/23 09:11 BP 116/74 11/29/23 09:11 Pulse Ox 97 11/29/23 09:11 O2 Del Method Room Air 11/29/23 09:11 Allergies Allergy/AdvReac Type Severity Reaction Status Date / Time codeine AdvReac Mild upset Verified 11/29/23 09:09 stomach Iodinated Contrast Media AdvReac Mild effects Verified 11/29/23 09:09 the kidneys Home Medications Medication Instructions Recorded Confirmed Type cyclosporine 0.05 % eye drops in a 1 drp ophthalmic (eye) Q12H 10/17/19 11/20/23 History dropperette (Restasis) spironolactone 25 mg tablet 25 mg PO DAILY 10/17/19 11/20/23 History cyanocobalamin (vitamin B-12) 1,000 mcg PO DAILY 09/29/20 11/20/23 History 1,000 mcg tablet multivitamin 1 tablet PO DAILY 09/29/20 11/20/23 History omega-3 fatty acids 1,000 mg 1,000 mg PO DAILY 09/29/20 11/20/23 History capsule blood-glucose meter #1 ea 09/29/21 11/04/23 Rx albuterol sulfate 90 mcg/actuation 2 inh inhalation Q4H PRN shortness 08/15/22 11/20/23 Rx aerosol inhaler of breath or wheezing #8.5 grams fluticasone furoate 100 1 inh inhalation DAILY #60 ea 08/15/22 11/20/23 Rx mcg-vilanterol 25 mcg/dose inhalation powder (Breo Ellipta) blood sugar diagnostic (Accu-Chek #100 ea 04/08/23 11/04/23 Rx Guide test strips) pen needle, diabetic 32 gauge x #100 ea 05/24/23 11/04/23 Rx 5/32 (Aqinject Pen Needle) carvedilol 6.25 mg tablet 6.25 mg PO BID #90 tabs 06/25/23 11/29/23 Rx apixaban 5 mg tablet (Eliquis) 5 mg PO BID 07/01/23 11/20/23 History aspirin 81 mg capsule 81 mg PO DAILY 07/01/23 11/20/23 History tramadol 50 mg tablet 50 mg PO Q6H PRN pain #90 tabs 08/13/23 11/20/23 Rx insulin glargine 100 15 unit (0.15 mL) subcut QAM #15 mL 09/04/23 11/20/23 Rx unit-lixisenatide 33 mcg/mL subcutaneous pen (Soliqua /33) ferrous sulfate 325 mg (65 mg 325 mg PO DAILY #90 tabs 10/02/23 11/20/23 Rx iron) tablet (FeroSul) lancets (Accu-Chek Fastclix Lancet #306 ea 10/23/23 11/04/23 Rx Drum) allopurinol 100 mg tablet 100 mg PO DAILY 11/20/23 11/20/23 History gabapentin 100 mg capsule 2 mg PO TID 11/20/23 11/20/23 History glipizide 10 mg tablet 10 mg PO BID 11/20/23 11/20/23 History losartan 50 mg tablet 50 mg PO DAILY 11/20/23 11/20/23 History simvastatin 20 mg tablet 20 mg PO DAILY 11/20/23 11/20/23 History sitagliptin phosphate 50 mg tablet 50 mg PO DAILY 11/20/23 11/20/23 History (Januvia) Laboratory Tests 11/29/23 09:16 POC Capillary Glucose 234 H mg/dl (65-105) Patient hx anesthesia problems: none Family hx anesthesia problems: none Results Review: All pre-operative results and documents have been reviewed as part of the pre-operative evaluation. [facility], [facility] Past Medical History Medical History (Updated 11/08/23 @ 15:08 by ROD BrooksN-C) A-fib Paroxysmal A-fib Anemia Ankle fracture, right ORIF Arthritis Asthma Black stools Bleeding nose Breast cancer Status post lumpectomy. Chemo and radiation. 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
--- NOTE | 2023-11-29 09:40 | WPDHPUPDATE1 ---
History and Physical Update Update Date/Time: 11/29/23 09:40 History and Physical has been reviewed, including an updated exam of the patient. There are NO changes in the patient's condition. Risks, benefits, and alternatives have been discussed and questions answered. Patient agrees to proceed with procedure.
[2023-11-29 10:04] VITALS: BP 92/48; PULSE 113; RESP 22; O2SAT 95
[2023-11-29 10:07] VITALS: BP 98/66; PULSE 116; RESP 23; O2SAT 96
[2023-11-29 10:14] VITALS: BP 109/58; PULSE 109; RESP 20; O2SAT 99
[2023-11-29 10:21] LABS: Glucose Point of Care 212 mg/dl (65-105)
[2023-11-29 10:24] VITALS: BP 116/67; PULSE 112; RESP 22; O2SAT 99
== END 2023-11-29 10:43 | disposition home or self-care (01) ==
PROVIDERS: PCP Family Medicine; Visit Provider Internal Medicine Gastroenterology
PROC: 0DJD8ZZ Inspection of Lower Intestinal Tract, Via Natural or Artificial Opening Endoscopic (ICD-10-PCS; CPT 45378; principal; 2023-11-29 10:30)
DX: K57.30 Diverticulosis of large intestine without perforation or abscess without bleeding (principal); K64.8 Other hemorrhoids; I48.0 Paroxysmal atrial fibrillation; D64.9 Anemia, unspecified; I12.9 Hypertensive chronic kidney disease with stage 1 through stage 4 chronic kidney disease, or unspecified chronic kidney disease; E11.22 Type 2 diabetes mellitus with diabetic chronic kidney disease; N18.30 Chronic kidney disease, stage 3 unspecified; G62.0 Drug-induced polyneuropathy; K21.9 Gastro-esophageal reflux disease without esophagitis; M10.9 Gout, unspecified; E78.00 Pure hypercholesterolemia, unspecified; M81.0 Age-related osteoporosis without current pathological fracture; Z85.3 Personal history of malignant neoplasm of breast; Z92.21 Personal history of antineoplastic chemotherapy; Z92.3 Personal history of irradiation; Z79.51 Long term (current) use of inhaled steroids; Z79.01 Long term (current) use of anticoagulants; Z79.82 Long term (current) use of aspirin; Z79.4 Long term (current) use of insulin; Z79.84 Long term (current) use of oral hypoglycemic drugs; E66.9 Obesity, unspecified; Z68.30 Body mass index [BMI] 30.0-30.9, adult
CPT/HCPCS: 45380; 82948; 88305; J2001; J2704; J7120

== ENCOUNTER 2023-12-11 10:43 | Emergency (ER) | payer MEDICARE, SELFPAY ==
--- NOTE | ~2023-12-11 | XR_ITS ---
EXAMINATION: XR hand RT min 3V DATE: 12/11/2023 11:48 INDICATION: Nontraumatic pain at the base of the right thumb TECHNIQUE: Posteroanterior, oblique and lateral views of the right hand were obtained. COMPARISON: None. FINDINGS: Diffuse osteopenia. Bone alignment is normal. No fracture. Chondrocalcinosis at the wrist joint inclu ding involvement of the trigone fibrocartilage complex. There is polyarticular osteoarthritis, severe at the first carpometacarpal joint with remodeling of the trapezium, prominent subarticular cystic c hange at the base of the first metacarpal and small degenerative loose bodies at the margins of the j oint space. Additional small loose bodies versus calcific debris at the triscaphe joint where there i s moderate osteoarthritis. Mild osteoarthritis of the distal radioulnar and multiple interphalangeal joints. IMPRESSION: 1. Polyarticular osteoarthritis at the right hand and wrist, severe at the first carpometacarpal join t, moderate at the triscaphe joint and otherwise mild. 2. 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 Reviewed, dictated and finalized at location B. IMPRESSION: 1. Polyarticular osteoarthritis at the right hand and wrist, severe at the firs t carpometacarpal joint, moderate at the triscaphe joint and otherwise mild. 2. 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
[2023-12-11 10:56] VITALS: BP 152/73; PULSE 73; RESP 16; TEMP 36.9; O2SAT 98
--- NOTE | 2023-12-11 11:28 | ED.EXTPRO ---
HPI - Extremity Problem General Chief complaint: Extremity Problem,Nontraumatic Stated complaint: right thumb/wrist pain Time Seen by Provider: 12/11/23 11:24 Source: patient and RN notes reviewed Mode of arrival: ambulatory Limitations: no limitations History of Present Illness HPI Narrative: 83-year-old female presents with concern for right hand/wrist pain that started overnight. Reports that caused her trouble sleeping. Reports the pain has been getting progressively worse. She denies injury or trauma. She took Tylenol last night and took tramadol this morning without relief. She denies redness, warmth, swelling, open skin MD Complaint: extremity pain Related Data Home Medications Medication Instructions Recorded Confirmed cyclosporine 0.05 % eye drops in a 1 drp ophthalmic (eye) Q12H 10/17/19 12/11/23 dropperette (Restasis) spironolactone 25 mg tablet 25 mg PO DAILY 10/17/19 12/11/23 cyanocobalamin (vitamin B-12) 1,000 mcg PO DAILY 09/29/20 12/11/23 1,000 mcg tablet multivitamin 1 tablet PO DAILY 09/29/20 12/11/23 omega-3 fatty acids 1,000 mg 1,000 mg PO DAILY 09/29/20 12/11/23 capsule apixaban 5 mg tablet (Eliquis) 5 mg PO BID 07/01/23 12/11/23 aspirin 81 mg capsule 81 mg PO DAILY 07/01/23 12/11/23 allopurinol 100 mg tablet 100 mg PO DAILY 11/20/23 12/11/23 gabapentin 100 mg capsule 2 mg PO TID 11/20/23 12/11/23 glipizide 10 mg tablet 10 mg PO BID 11/20/23 12/11/23 losartan 50 mg tablet 50 mg PO DAILY 11/20/23 12/11/23 simvastatin 20 mg tablet 20 mg PO DAILY 11/20/23 12/11/23 sitagliptin phosphate 50 mg tablet 50 mg PO DAILY 11/20/23 12/11/23 (Januvia) Allergies Allergy/AdvReac Type Severity Reaction Status Date / Time codeine AdvReac Mild upset Verified 12/11/23 10:50 stomach Iodinated Contrast Media AdvReac Mild effects Verified 12/11/23 10:50 the kidneys Review of Systems Review of Systems: CONSTITUTIONAL: Denies malaise, chills, sweats, or fever. CARDIOVASCULAR: Denies chest pain, palpitations, or edema. RESPIRATORY: Denies cough or dyspnea. SKIN: Denies rash or itching, bruising, redness, swelling. MUSCULOSKELETAL: Reports right hand and wrist pain NEUROLOGIC: Denies numbness, weakness All systems reviewed & are unremarkable except as noted in HPI and below PMFSH Past Medical History Medical History (Updated 12/11/23 @ 12:01 by Michelle Berg NP) A-fib Paroxysmal A-fib Anemia Ankle fracture, right ORIF Arthritis Asthma Black stools Bleeding nose Breast cancer Status post lumpectomy. Chemo and radiation. 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 Congestive heart failure Contusion of ankle, left Diabetes mellitus Diabetes mellitus Diarrhea Diverticulitis Dizziness Flatfoot GERD (gastroesophageal reflux disease) Gout Hearing loss Hematochezia High cholesterol History of chemotherapy With breast cancer HLD (hyperlipidemia) HTN (hypertension) Hypertension Kidney disease Nausea Neuropathy associated with cancer Osteoporosis Painful urination Posterior tibial tendinitis of left leg Shortness of breath Skin cancer Ulcer Urinary frequency Vertigo Vision abnormalities Weight gain Surgical History Surgical History H/O cardiac catheterization No intervention H/O lumpectomy Rt H/O: hysterectomy History of genitourinary surgery Bladder repair No significant past surgical history Status post ORIF of fracture of ankle Rt Family History Family History Mother Alzheimer's dementia Cerebrovascular accident Hypertension Father Lymphoma Cerebrovascular accident Hypertension Other Family history of arthritis Family history of cardiovascular disease Social History Social History Social History: Smoking status: Never smoker Second hand to
== END 2023-12-11 12:05 | disposition home or self-care (01) ==
PROVIDERS: Emergency Provider Nurse Practitioner; PCP Family Medicine
DX: M11.231 Other chondrocalcinosis, right wrist (principal); I13.0 Hypertensive heart and chronic kidney disease with heart failure and stage 1 through stage 4 chronic kidney disease, or unspecified chronic kidney disease; E11.22 Type 2 diabetes mellitus with diabetic chronic kidney disease; N18.30 Chronic kidney disease, stage 3 unspecified; I50.9 Heart failure, unspecified; Z79.84 Long term (current) use of oral hypoglycemic drugs; I48.91 Unspecified atrial fibrillation; M19.90 Unspecified osteoarthritis, unspecified site; J45.909 Unspecified asthma, uncomplicated; K21.9 Gastro-esophageal reflux disease without esophagitis; E78.00 Pure hypercholesterolemia, unspecified; E78.5 Hyperlipidemia, unspecified; M81.0 Age-related osteoporosis without current pathological fracture; Z85.3 Personal history of malignant neoplasm of breast; Z85.828 Personal history of other malignant neoplasm of skin
CPT/HCPCS: 73130; 99213; G0463

== ENCOUNTER 2024-04-08 12:35 | Outpatient (CLI) | payer MEDICARE, SELFPAY ==
--- NOTE | ~2024-04-08 | MR_ITS ---
MRI of the brain Clinical History: Repeated falls Technique: Axial and sagittal T1-weighted images were acquired. These were followed by axial T2-weigh yanick, diffusion weighted, gradient, and FLAIR images. COMPARISON: 10/08/2017 Findings: There is no acute infarct, intracranial hemorrhage, or mass lesion. Mild chronic microvascu lar ischemic changes in the periventricular white matter are present, progressed from prior exam. Ventricles and subarachnoid spaces are mildly dilated. Orbits are unremarkable. Paranasal sinuses are clear. There are minimal mastoid effusions bilaterally. Major intracranial flow voids are intact. Sagittal midline structures are intact. IMPRESSION: No acute intracranial hemorrhage, acute infarct, or mass lesion. Mild chronic microvascular ischemic changes, progressed from prior exam. Mild generalized atrophy. Reviewed, dictated and finalized at location . IMPRESSION: No acute intracranial hemorrhage, acute infarct, or mass lesion. Mild chronic microvascular ischemic changes, progressed from prior exam. Mild g eneralized atrophy.
== END 2024-04-08 12:36 | disposition home or self-care (01) ==
PROVIDERS: PCP Family Medicine; Visit Provider Family Medicine
DX: S06.0XAA Concussion with loss of consciousness status unknown, initial encounter (principal); R29.6 Repeated falls
CPT/HCPCS: 70551

== ENCOUNTER 2024-05-15 12:51 | Emergency (ER) | payer MEDICARE, SELFPAY ==
--- NOTE | ~2024-05-15 | CT_ITS ---
EXAMINATION: CT facial & cervical spine wo DATE: 05/15/2024 14:10 INDICATION: Head injury. TECHNIQUE: Computed tomography (CT) of the maxillofacial region and cervical spine was performed with out intravenous contrast. Automated exposure control and iterative reconstruction technique were empl oyed. The dose-length product was 443.13 mGy-cm. COMPARISON: None FINDINGS: MAXILLOFACIAL CT: There is a right frontal scalp hematoma. There are likely changes of ocular lens replacement surgerie s. There is leftward deviation of the nasal septum. There is mild mucosal thickening in the paranasal sinuses. CERVICAL SPINE CT: There is kyphosis of cervical spine. There is 2 mm anterolisthesis of C3 on C4, 3 mm anterolisthesis of C4 on C5, and 2 mm anterolisthesis of C7 on T1. Vertebral body heights are normal. There is mildly decreased disc height at C3-C4 and C4-C5, severely decreased disc height at C5-C6 and C6-C7, and mil dly decreased disc height at C7-T1. The following disc levels are specifically discussed: C2-C3: There is ankylosis of left uncovertebral joint with mild hypertrophy. There is mild right face t joint osteoarthritis. There is ankylosis of left facet joint with moderate hypertrophy. There is mi ld left neural foraminal stenosis. There is no central canal stenosis. C3-C4: There is mild right and severe left uncovertebral joint osteoarthritis. There is severe bilate ral facet joint osteoarthritis. There is mild bilateral neural foraminal stenosis. There is mild cent ral canal stenosis. C4-C5: There is mild bilateral uncovertebral joint osteoarthritis. There is severe bilateral facet tena int osteoarthritis. There is mild bilateral neural foraminal stenosis. There is mild central canal st enosis. C5-C6: There is severe right and moderate left uncovertebral joint osteoarthritis. There is severe bi lateral facet joint osteoarthritis. There is mild bilateral neural foraminal stenosis. There is mild central canal stenosis. C6-C7: There is severe bilateral uncovertebral joint osteoarthritis. There is mild right and moderate left facet joint osteoarthritis. There is mild bilateral neural foraminal stenosis. There is mild ce ntral canal stenosis. C7-T1: There is no uncovertebral joint osteoarthritis. There is severe bilateral facet joint osteoart hritis. There is mild bilateral neural foraminal stenosis. There is no central canal stenosis. IMPRESSION: 1. No fracture. 2. Severe cervical spondylosis. Reviewed, dictated and finalized at location A.
--- NOTE | ~2024-05-15 | CT_ITS ---
EXAMINATION: CT brain wo con DATE: 05/15/2024 14:09 INDICATION: Head injury. TECHNIQUE: Computed tomography (CT) of the head was performed without intravenous contrast. The mA wa s adjusted according to patient size. Iterative reconstruction technique was employed. The dose-lengt h product was 605.33 mGy-cm. COMPARISON: Brain MRI 04/08/2024 FINDINGS: There are scattered areas of low attenuation in the cerebral white matter, which is within normal limits for the patient's age. There is no intracranial hemorrhage, acute infarction, or abnorm al intracranial mass lesion. The ventricles are normal in size. There is a right frontal scalp hemato ma. There are likely changes of ocular lens replacement surgeries. There is mucosal thickening in the paranasal sinuses. There are small bilateral mastoid effusions. IMPRESSION: 1. Normal aging brain. Reviewed, dictated and finalized at location A. IMPRESSION: 1. Normal aging brain.
[2024-05-15 12:54] VITALS: BP 149/73; PULSE 69; RESP 16; TEMP 36.5; O2SAT 93
[2024-05-15] MEDS: MORPHINE SULFATE (*CRX) 4 MG/ML INJ IV PUSH (13:54)
--- NOTE | 2024-05-15 15:34 | ED.GENADULT ---
HPI - General Adult General Chief complaint: Fall Stated complaint: fall, on eliquis Time Seen by Provider: 05/15/24 13:37 History of Present Illness HPI narrative: Patient is an 84-year-old female who presents ER after a trip and fall. She did strike her head on the right side. She did not lose consciousness. She is on Eliquis. No pain in the neck. She has bruising to her upper lip and a slight abrasion on the upper lip. She is not receiving pain medication. She is able to see out of her right eye. Related Data Home Medications Medication Instructions Recorded Confirmed cyclosporine 0.05 % eye drops in a 1 drp ophthalmic (eye) Q12H 10/17/19 03/31/24 dropperette (Restasis) spironolactone 25 mg tablet 25 mg PO DAILY 10/17/19 03/31/24 cyanocobalamin (vitamin B-12) 1,000 mcg PO DAILY 09/29/20 03/31/24 1,000 mcg tablet multivitamin 1 tablet PO DAILY 09/29/20 03/31/24 omega-3 fatty acids 1,000 mg 1,000 mg PO DAILY 09/29/20 03/31/24 capsule apixaban 5 mg tablet (Eliquis) 5 mg PO BID 07/01/23 03/31/24 aspirin 81 mg capsule 81 mg PO DAILY 07/01/23 03/31/24 glipizide 10 mg tablet 10 mg PO BID 11/20/23 03/31/24 simvastatin 20 mg tablet 20 mg PO DAILY 11/20/23 03/31/24 gabapentin 100 mg capsule 200 mg PO TID 12/16/23 03/31/24 Allergies Allergy/AdvReac Type Severity Reaction Status Date / Time codeine AdvReac Mild upset Verified 03/31/24 14:01 stomach Iodinated Contrast Media AdvReac Mild effects Verified 03/31/24 14:01 the kidneys Review of Systems Review of Systems: All systems reviewed & are unremarkable except as noted in HPI and below Constitutional: Constitutional: Reports no additional constitutional complaints Eyes: Eyes: Denies change in vision and Denies photophobia ENT: Reports system reviewed and no additional complaints, except as documented Cardiovascular: Cardiovascular: Reports no additional cardiovascular complaints Musculoskeletal: Musculoskeletal: Reports no additional musculoskeletal complaints Neurologic: Reports system reviewed and no additional complaints, except as documented, Denies headache(s), Denies focal weakness, Denies numbness and Denies weakness PMFSH Past Medical History Medical History A-fib Paroxysmal A-fib Anemia Ankle fracture, right ORIF Arthritis Asthma Black stools Bleeding nose Breast cancer Status post lumpectomy. Chemo and radiation. 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 Congestive heart failure Contusion of ankle, left Diabetes mellitus Diabetes mellitus Diarrhea Diverticulitis Dizziness Flatfoot GERD (gastroesophageal reflux disease) Gout Hearing loss Hematochezia High cholesterol History of chemotherapy With breast cancer HLD (hyperlipidemia) HTN (hypertension) Hypertension Kidney disease Nausea Neuropathy associated with cancer Osteoporosis Painful urination Posterior tibial tendinitis of left leg Shortness of breath Skin cancer Ulcer Urinary frequency Vertigo Vision abnormalities Weight gain Surgical History Surgical History H/O cardiac catheterization No intervention H/O lumpectomy Rt H/O: hysterectomy History of genitourinary surgery Bladder repair No significant past surgical history Status post ORIF of fracture of ankle Rt Family History Family History Mother Alzheimer's dementia Cerebrovascular accident Hypertension Father Lymphoma Cerebrovascular accident Hypertension Other Family history of arthritis Family history of cardiovascular disease Social History Social History Social History: Smoking status: Never smoker Second hand tobacco smoke exposure: No Alcohol intake: current Substance use: never Sub
== END 2024-05-15 17:16 | disposition home or self-care (01) ==
PROVIDERS: Emergency Provider Emergency Medicine; PCP Family Medicine
DX: S00.531A Contusion of lip, initial encounter (principal); I48.0 Paroxysmal atrial fibrillation; I13.0 Hypertensive heart and chronic kidney disease with heart failure and stage 1 through stage 4 chronic kidney disease, or unspecified chronic kidney disease; I50.9 Heart failure, unspecified; E11.22 Type 2 diabetes mellitus with diabetic chronic kidney disease; N18.30 Chronic kidney disease, stage 3 unspecified; J45.909 Unspecified asthma, uncomplicated; E78.00 Pure hypercholesterolemia, unspecified; K21.9 Gastro-esophageal reflux disease without esophagitis; M19.90 Unspecified osteoarthritis, unspecified site; M81.0 Age-related osteoporosis without current pathological fracture; Z86.2 Personal history of diseases of the blood and blood-forming organs and certain disorders involving the immune mechanism; Z85.3 Personal history of malignant neoplasm of breast; Z92.21 Personal history of antineoplastic chemotherapy; Z90.710 Acquired absence of both cervix and uterus; Z79.01 Long term (current) use of anticoagulants; Z79.899 Other long term (current) drug therapy; Z79.4 Long term (current) use of insulin; Z79.84 Long term (current) use of oral hypoglycemic drugs; M47.812 Spondylosis without myelopathy or radiculopathy, cervical region; W01.0XXA Fall on same level from slipping, tripping and stumbling without subsequent striking against object, initial encounter
CPT/HCPCS: 70450; 70486; 72125; 96374; 99284; J2270

== ENCOUNTER 2025-02-12 09:15 | Outpatient (CLI) | payer MEDICARE, SELFPAY ==
--- NOTE | ~2025-02-12 | MM_ITS ---
EXAMINATION: MM screening [facility] BI w [facility] HISTORY: Screening TECHNIQUE: Craniocaudal and mediolateral oblique 3-D tomosynthesis images were obtained and synthetic 2-D images were generated. CAD analysis was submitted and interpreted. COMPARISON: Comparison to multiple prior studies sequentially, with oldest reviewed study dated 03/2008. BREAST PARENCHYMAL COMPOSITION: Not dense: There are scattered areas of fibroglandular density. FINDINGS: There are changes of prior lumpectomy in the upper inner quadrant of the right breast poste riorly. There is no evidence of suspicious mass, calcification, or architectural distortion to sugges t malignancy in either breast. There has been no suspicious interval change. IMPRESSION: 1. No mammographic evidence of malignancy. 2. Recommend routine screening mammography in one year. BI-RADS Category 2: Benign finding(s). Reviewed, dictated and finalized at location B.
--- OUTSIDE RECORDS SUMMARY | 2025-02-12 09:21 | XMS_ITS ---
Author Organization [facility] Address [address] [place], [place] [id number] Care Team Providers Care Deputy Bailiff Name Role Phone RUBIA Rajan Unavailable [phone] JackynicciashvinKemi kulkarni Unavailable Unavailable MARK ROONEY Unavailable [phone] REASON FOR VISIT *General care - WILL CB TO RS Encounters Encounter Location Date Provider Diagnosis [facility] [place] [address] [facility] [address] [place], [place] [id number] 09/23/2023 MARK ROONEY Plan Of Treatment No Information Progress Notes * LAZARO MICHELLE MDOB: 1940 (85 yo F)Acc No.[id number]:09/23/2023 Patient: Randa DILLON LAZARO GUTIERREZ Provider: Rashid Rooney DPM :1940 A ge:83 Y S ex:Female Date:09/23/2023 Address:[facility] [address] [place], [place] Subjective: * Chief Complaints: * 1 . *General care - WILL CB TO RS. * Medical History: Objective: * Vitals: Assessment: Plan: * Treatment: * Billing Information: * Visit Code: * Procedure Codes: * Electronic signature of MARK ROONEY DPM on 02/12/2025 at 09:21 AM CDT Sign off status: Pending * Provider: Rashid Rooney DPM Date: 0 09/23/2023 Generated for Malcolm gamez/Emiliano/Ana on: 0 02/12/2025 09:21 AM CDT
--- OUTSIDE RECORDS SUMMARY | 2025-02-12 09:21 | XMS_ITS | Clinical Summary ---
Author Organization [facility] Address [address] [place] [address] Care Team Providers Care Diagnostic Medical Sonographer Name Role Phone Kemi Clifford MD Primary Care Provider Allergies Active Allergy Reactions Criticality Noted Date Comments Codeine Stomach upset Medium 06/16/2010 Iodinated Contrast Media Other (See comments) Medium 06/11/2017 More concerned with kidney function Dronedarone Shortness of breath,Itching,Cough ,Headache High 02/12/2019 Medications multivitamin tabletIndicatio ns:Vitamin Deficiency Prevention Active losartan (COZAAR) 50 mg tablet daily. Active omega-3 fatty acids 1,000 mg capsule daily. Active aspirin 81 mg tablet daily. Active allopurinol (ZYLOPRIM) 100 mg tablet Take 1 tablet (100 mg total) by mouth daily Active simvastatin (ZOCOR) 20 mg tablet 0.5 tablets (10 mg total) 01/22/2020 Active Accu-Chek Guide test strips strip TEST TWICE DAILY TO THREE TIMES DAILY 10/21/2021 Active Accu-Chek Guide Me Glucose Mtr misc as directed 10/21/2021 Active gabapentin (NEURONTIN) 100 mg capsule Take 4 capsules (400 mg total) by mouth daily 10/10/2021 Active Accu-Chek Fastclix Lancet Drum misc TET TWICE DAILY TO THREE TIMES DAILY 10/22/2021 Active glipiZIDE (GLUCOTROL) 10 mg tablet Take 1 tablet (10 mg total) by mouth 2 (two) times a day 09/26/2021 Active Restasis 0.05 % ophthalmic emulsion 07/09/2022 Active Januvia 25 mg tablet 10/26/2022 Active FeroSuL 325 mg (65 mg iron) tablet Take 1 tablet (325 mg total) by mouth 2 (two) times a day 03/11/2023 Active insulin glargine-lixise natide (Soliqua 100/33) 100 unit-33 mcg/mL insulin pen Inject under the skin Active traMADoL (ULTRAM) 50 mg tablet Take 1 tablet (50 mg total) by mouth every 6 (six) hours as needed 12/03/2023 Active furosemide (LASIX) 20 mg tablet Take 1 tablet (20 mg total) by mouth daily 90 tablet 3 12/05/2023 Active spironolactone (ALDACTONE) 25 mg tablet Take 0.5 tablets (12.5 mg total) by mouth daily 50 tablet 2 07/10/2024 Active apixaban (Eliquis) 5 mg tablet TAKE 1 TABLET BY MOUTH TWICE DAILY 180 tablet 3 11/12/2024 Active carvediloL (COREG) 6.25 mg tablet TAKE 1 TABLET BY MOUTH TWICE DAILY 200 tablet 2 11/12/2024 Active Active Problems Problem Noted Date Diagnosed Date Diabetes mellitus type II, non insulin dependent 05/26/2024 Fall as cause of accidental injury at home as place of occurrence 05/26/2024 Dizziness and giddiness 04/15/2024 Assessment & Plan (04/15/2024 1:40 PM CDT): I think this is mostly due to her neuropathy and I recommended that she continue with physical therapy. I talked with her about benign positional vertigo and testing for that. If she has no significant improvement I recommended that she call us to see if we can further evaluate the inner ear. She understands. Non-recurrent acute serous otitis media of right ear 03/11/2024 Assessment & Plan (04/15/2024 1:39 PM CDT): Her hearing is much better. Having no problems. She is wearing hearing aids with more success. Recommending no intervention but asked her to return if she should have any further problems. Assessment & Plan (03/11/2024 1:35 PM CDT): She has a middle ear effusion on the right side. I recommended a myringotomy to drain this. She was in favor of that and noticed improvement in her hearing just about immediately. I recommended keeping the ear dry. She can go ahead start wearing her hearing aids. I going to send a low dose of prednisone for 1 week. I would like to have her follow up in a month. Sensation of fullness in both ears 01/20/2024 Assessment & Plan (01/20/2024 9:17 AM CDT): Both ears look pretty good other than a lot of cerumen that was removed. She noted improvement in her hearing after she replaced her hearing aids. I am recommending no further intervention. She can follow up here as needed. Anosmia 11/21/2022 Assessment & Plan (04/15/2024 1:39 PM CDT): No significant change. Assessment & Plan (03/11/2024 1:36 PM CDT): I told her that the low dose of steroids that I am going to prescribe may help quite a bit with her decreased sense of smell and she is in favor of this. Again see her back in about 1 month. Assessment & Plan (11/25/2022 9:53 AM CDT): Looks like she may have a sinus infection I suggested treating that. I am giving her Ceftin for 2 weeks and a steroid pack. Hopefully that will help with the symptoms of anosmia. It may be temporary however and if she wants to further investigate it I have asked her to follow-up with me. She understood. Has no questions. Bilateral impacted cerumen 11/21/2022 Assessment & Plan (01/20/2024 9:17 AM CDT): She would very large cerumen impactions, specially on the left. This was all removed. Hearing improved. Needs no further intervention. Assessment & Plan (11/25/2022 9:50 AM CDT): She did have a lot of wax in both ears and this was removed without too much difficulty. She tolerated well. Ears otherwise look okay. She can follow up with me as needed for this. Abnormal stress test 08/02/2020 Overview (08/02/2020): Added automatically from request for surgery [id number] Chest pain 08/02/2020 Overview (08/02/2020): Added automatically from request for surgery [id number] Closed fracture of right ankle with routine heal ing 01/01/2020 History of hysterectomy 01/01/2020 Paroxysmal atrial fibrillation 12/19/2018 History of breast cancer 07/04/2018 Asymptomatic postmenopausal status 02/12/2018 Abnormal cardiovascular stress test 05/21/2017 History of high risk medication treatment 2014 Shortness of breath 12/17/2014 Bruit 08/13/2014 Difficulty breathing 05/03/2014 Cardiomyopathy 12/09/2012 Essential hypertension 12/09/2012 Hyperlipidemia 12/09/2012 Single vessel coronary artery disease 12/09/2012 Congestive heart failure 12/20/2011 Malignant neoplasm of unspec ified site of right female breast 05/03/2011 Resolved Problems Problem Noted Date Diagnosed Date Resolved Date Carotid artery disease 11/01/201612/19 Chronic coronary artery disease 12/17/2014 12/08/2023 Arteriosclerotic vascular disease 12/09/2012 12/10/2020 Surgical History Surgery Date Site/Laterality Comments HYSTERECTOMY SINUS SURGERY 05/19/2018 BREAST SURGERY Right ANKLE SURGERY Right Medical History Medical History Date Comments Breast cancer (HCC) Coronary artery disease Hyperlipidemia Diabetes mellitus (HCC) Hypertension Allergic rhinitis Asthma Heart disease History of kidney problems History of radiation therapy GERD (gastroesophageal reflux disease) Sinusitis Neuropathy Ear problems HL (hearing loss) Family History Medical History Relation Name Comments Cancer Father Family history of cancer - (Added by TW Conv) Coronary artery disease Father Fami ly history of coronary artery disease - (Added by TW Conv) Lung disease Father Family history of lung disease - (Added by TW Conv) Lymphoma Father Family history of lymphoma - (Added by TW Conv) Coronary artery disease Mother Fami ly history of coronary artery disease - (Added by TW Conv) Heart failure Mother Family history of heart failure - (Added by TW Conv) Hypertension Mother Family history of hypertension - (Added by TW Conv) Stroke Mother Family history of stroke - (Added by TW Conv) Relation Name Status Comments Father Mother Social History Tobacco Use Types Packs/Day Years Used Date Smoking Tobacco: Never Smokeless Tobacco: Never Tobacco Cessation:Counseling Given: Not Answered Alcohol Use Standard Drinks/Week Comments Never 0 (1 standard drink = 0.6 oz pur e alcohol) AUDIT-C Answer Date Recorded Frequency of Alcohol Consumption Never 12/19/2018 Average Number of Drinks Not on file 019 Frequency of Binge Drinking Not on file 12/01 Comments No Sex and Gender Information Value Date Recorded Sex Assigned at Not on file Legal Sex Female 2:13 AM [employer]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[employer]ER Gender Identity Not on file Sexual Orientation Not on file Obstetrics History Last Filed Vital Signs Vital Sign Reading Time Taken Comments Blood Pressure 137/80 09/29/2024 12:31 PM 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 Pulse 75 09/29/2024 12:31 PM 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 Temperature 36.1 C (97 F) 09/29/2024 12:31 PM 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 Respiratory Rate 20 04/15/2024 1:23 PM CDT Oxygen Saturation 96% 09/29/2024 12:31 PM 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 Inhaled Oxygen Concentration - - Weight 80.3 kg (177 lb) 09/29/2024 12:31 PM 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 Height 162.6 cm (5' 4) 09/29/2024 12:31 PM 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 Body Mass Index 30.38 09/29/2024 12:31 PM 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 Plan of Treatment Health Maintenance Due Date Last Done Comments Albumin Creatinine Ratio, Urine 1940 Depression Screening 1940 Osteoporosis Screening-Bone Density Scan 1940 Dilated Eye Exam 1940 Foot Exam 1940 Hepatitis B Screening 01/16/1960 Zoster Vaccine (1 of 2) 01/16/1992 Well Visit 65+ 2007 Hemoglobin A1C 06/19/2019 12/18/2018 Lipid Panel 12/20/2019 12/19/2018 Fall Risk Assessment 08/19/2021 08/19/2020 eGFR 12/05/2023 12/04/2022, 12/03/2020, 03/03/2020 Influenza Vaccine (Season Ended) 2025 DTaP/Tdap/Td Vaccine (2 - Td or Tdap) 08/10/202605/2016 Pneumococcal vaccine 65+ Completed 08/10/2016, 05/03 Procedures Procedure Name Priority Date/Time Associated Diagnosis Comments EGFR Routine 12/04/2022 11:19 AM CDT Congestive heart failure, unspecified HF chronicity, unspecified heart failure type (HCC) Chest pain, unspecified type Dyslipidemia LIPID PANEL Routine 12/19/2018 5:39 AM CDT HEMOGLOBIN A1C STAT 12/18/2018 5:29 PM CDT from Last 3 Months or Most Recently Relevant to Health Maintenance Results * (ABNORMAL) eGFR (12/04/2022 11:19 AM CDT) eGFR 54(L) 90 - 130 mL/min/1. 73 m2 [facility] Comment: Interpretive Data Reference Interval Normal >/= 90 mL/min/1.73m2 Mildly decreased* 60 - 89 mL/min/1.73m2 Mildly to moderately decreased 45 - 59 mL/min/1.73m2 Moderately to severely decreased 30 - 44 mL/min/1.73m2 Severely decreased 15 - 29 mL/min/1.73m2 Kidney Failure < 15 mL/min/1.73m2 *Relative to young adult level Estimated glomerular filtration rate is determined by the 2020 CKD-EPI equation recommended by the National Kidney Foundation (A Unifying Approach to GFR Estimation: Recommendations of the NKF-ASK Task Force on Reassessing the Inclusion of Race in Diagnosing Kidney Disease, JASN 2020). The CKD-EPI equation should not be used for patients with unstable renal function and has not been validated in children and those over 70. Current interpretive data was last reviewed 2021. Blood 12/04/2022 11:1 9 AM CDT 12/04/2022 1:49 PM CDT us Meet Guerrero MD LAB BLOOD ORDERABLES Final Res ult [facility] [place] [address] * Lipid panel (12/19/2018 5:39 AM CDT) Cholesterol 131 30 - 199 mg/dL [facility] Comment: Interpretive Data Ages < or = 19 years Acceptable: <170 mg/dL Borderline high: 170-199 mg/dL High: >or= 200 mg/dL Ages > or = 20 years Desirable: <200 mg/dL Borderline high: 200-239 mg/dL High: >or= 240 mg/dL Literature References: 1. Expert Panel on Integrated Guidelines for Cardiovascular Health and Risk Reduction in Children and Adolescents. Pediatrics 2011;128:S213 2. NCEP Expert Panel. Circulation 2004;110:227 Current Interpretive Data was last revised on 2018. Triglycerides 147 <=149 mg/dL [facility] Comment: Interpretive Data Ages < or = 9 years Acceptable: <75 mg/dL Borderline high: 75-99 mg/dL High: >or= 100 mg/dL Ages 10 to 20 years Acceptable: <90 mg/dL Borderline high: 90-129 mg/dL High: >or= 130 mg/dL Ages > or = 20 years Desirable: <150 mg/dL Borderline high: 150-199 mg/dL High: 200-499 mg/dL Very high: >or= 499 mg/dL Literature References: 1. Expert Panel on Integrated Guidelines for Cardiovascular Health and Risk Reduction in Children and Adolescents. Pediatrics 2011;128:S213 2. NCEP Expert Panel. Circulation 2004;110:227 Current Interpretive Data was last revised on 2018. HDL 49 >=40 mg/dL [facility] Comment: Interpretive Data Ages < or = 19 years Acceptable: >45 mg/dL Borderline low: 40-45 mg/dL Low: <40 mg/dL Ages > or = 20 years Desirable: >or= 60 mg/dL Low: <40 mg/dL Literature References: 1. Expert Panel on Integrated Guidelines for Cardiovascular Health and Risk Reduction in Children and Adolescents. Pediatrics 2011;128:S213 2. NCEP Expert Panel. Circulation 2004;110:227 Current Interpretive Data was last revised on 2018. LDL, calculated 53 <=129 mg/dL [facility] Comment: Interpretive Data Ages < or = 19 years Acceptable: <110 mg/dL Borderline high: 110-129 mg/dL High: >or= 130 mg/dL Ages > or = 20 years Optimal: <100 mg/dL Near optimal: 100-129 mg/dL Borderline high: 130-159 mg/dL High: >160 mg/dL Literature References: 1. Expert Panel on Integrated Guidelines for Cardiovascular Health and Risk Reduction in Children and Adolescents. Pediatrics 2011;128:S213 2. NCEP Expert Panel. Circulation 2004;110:227 Current Interpretive Data was last revised on 2018. Non-HDL Cholesterol 82 mg/dL [facility] Comment: Interpretive Data Ages < or = 19 years Acceptable: <120 mg/dL Borderline high: 120-144 mg/dL High: >145 mg/dL Ages > or = 20 years When triglycerides are >200 mg/dL, Non-HDL cholesterol is a secondary target of therapy with treatment goals that are 30 mg/dL greater than the LDL cholesterol target. Literature References: 1. Expert Panel on Integrated Guidelines for Cardiovascular Health and Risk Reduction in Children and Adolescents. Pediatrics 2011;128:S213 2. NCEP Expert Panel. Circulation 2003;110:227 Current Interpretive Data was last revised on 2018. Chol/HDL ratio 3 [facility] Blood specimen (specimen) 12/19/2018 5:39 AM CDT 12/19/2018 6:37 AM CDT Narrative [facility] - 12/19/2018 8:25 AM CDT us Meet Guerrero MD LAB BLOOD ORDERABLES Final Res ult [facility] [place] [address] * (ABNORMAL) Hemoglobin A1c (12/18/2018 5:29 PM CDT) Hgb A1C 8.0(H) 4.0 - 5.6 % [facility] Estimated Average Glucose 183 mg/dL [facility] Comment: The ADA recommends reporting an estimated Average Glucose (eAG) with all Hemoglobin A1c results using the equation derived from a study of 507 normal and diabetic adults. Minority populations were underrepresented and children were not included. (Diabetes Care 31:3853-1992, 2008). The eAG is not equivalent to a fasting glucose. Blood specimen (specimen) 12/18/2018 5:29 PM CDT 12/18/2018 6:00 PM CDT [facility] - 12/18/2018 6:16 PM CDT Darling Ramirez MANUFACTURING CHIEF ENGINEER LAB BLOOD ORDERABLES Final Result [facility] [place] [address] from Last 3 Months or Most Recently Relevant to Health Maintenance Insurance [facility] MEDICARE ADVANTAGE MEDICARE RESEARCH MEDICARE [facility] [place] [address] MEDICARE ANTHEM ACCESS Member Subscriber Plan / Payer (Ef fective 2015-Present) Name:Cynthia Polanco Relation to Subscriber:Spouse Name:GERALD GUTIERREZ Date of :1933 (Home) [address] [place] [address] Payer ID:[id number] (NAIC) Group ID:[id number] Type:[facility] Address: [address] H[address] REF [facility] Advance Directives For more information, please contact: [phone] * Full Code (Latest Code Status on File) Date Activated Date Inactivated Comments 08/19/2020 10:29 AM 08/20/2020 4:44 AM * Full Code Date Activated Date Inactivated Comments 12/18/2018 4:40 PM 12/19/2018 10:36 PM Care Teams Diagnostic Medical Sonographer Relationship Specialty Start Date End Date Kemi Clifford MD [address] [facility] [address] [place], [place] [id number] PCP - General Family Medicine 12/08/20
--- OUTSIDE RECORDS SUMMARY | 2025-02-12 09:21 | XMS_ITS | Patient Health Record ---
Author Organization [facility] Address [address] [place], [place] [address] Care Team Providers Care Hospitalist Medical Director Name Role Phone RUBIA Rajan Unavailable [phone] BrooksKemi shannon Unavailable Unavailable Allergies Allergen (clinical drug ingredient) Drug/Non Drug Allergy documented on EMR Reaction Allergy Type Onset Date Status codeine Codeine Unknown Drug Allergy 08/01/2012 active Reason For Referral No Information Medications Medication SIG (Take, Route, Frequency, Duration) Notes Start Date End Date Status diclofenac sodium 0.01 MG/MG Topical Gel [Voltaren] CUTANEOUS diclofenac sodium 0.01 MG/MG Topical Gel [Voltaren]Original Medicationdiclofenac sodium 0.01 MG/MG Topical Gel [Voltaren] *Reorder from [employer] for eRx and Interaction Alerts* 02/21/2017 Active urea 400 MG/ML Topical Cream CUTANEOUS urea 400 MG/ML Topical CreamOriginal Medicationurea 400 MG/ML Topical Cream *[facility] Interaction Alert[facility]* 05/26/2014 Active Immunizations Vaccine Route Administration Date Status Comme nts Influenza, high dose seasonal Unknown 06/03/2023 Admini stered Plan Of Treatment No Information Insurance Providers Payer Name Payer Address Payer Phone Subscriber Number Group Number Insured Name Patient Relationship to Insured Coverage Start Date Coverage End Date AARP MedicareCom plete ([employer]) [address] [place], [place] [id number] LAZARO MICHELLE Self - patient is the insured
--- OUTSIDE RECORDS SUMMARY | 2025-02-12 09:21 | XMS_ITS ---
[facility] Address [address] [place], [place] [address] Care Team Providers Care Flight Service Specialist Name Role Phone RUBIA Rajan Unavailable [phone] Kemi Clifford Unavailable Unavailable MARK ROONEY Unavailable [phone] REASON FOR VISIT sick Encounters Encounter Location Date Provider Diagnosis [facility] [place] [address] [facility] [address] [place], [place] [id number] 12/23/2023 MARK ROONEY Plan Of Treatment No Information Progress Notes * LAZARO MICHELLE MDOB: 1940 (85 yo F)Acc No.[id number]:12/23/2023 Patient: Randa DILLON LAZARO GUTIERREZ Provider: Rashid Rooney DPM :1940 A ge:83 Y S ex:Female Date:12/23/2023 Address:[facility] [address] [place], [place] Subjective: * Chief Complaints: * 1 . Sick. * Medical History: Objective: * Vitals: Assessment: Plan: * Treatment: * Billing Information: * Visit Code: * Procedure Codes: * Electronic signature of MARK ROONEY DPM on 02/12/2025 at 09:21 AM CDT Sign off status: Pending * Provider: Rashid Rooney DPM Date: 0 12/23/2023 Generated for Malcolm gamez/Emiliano/eTransmitting on: 0 02/12/2025 09:21 AM CDT
--- OUTSIDE RECORDS SUMMARY | 2025-02-12 09:21 | XMS_ITS | Encounter Summary ---
Author Organization [facility] Address [address] [place] [address] Phone Care Team Providers Care Change Of Address Clerk Name Role Phone Kemi Clifford MD Primary Care Provider Encounter Details Date Type Department Care Team (Latest Contact Info) Description 03/24/2021 Orders Only [facility] Scanning, Provider Social History Tobacco Use Types Packs/Day Years Used Date Smoking Tobacco: Never Smokeless Tobacco: Never Alcohol Use Standard Drinks/Week Comments Never 0 (1 standard drink = 0.6 oz pur e alcohol) AUDIT-C Answer Date Recorded Frequency of Alcohol Consumption Never 12/19/2018 Average Number of Drinks Not on file 019 Frequency of Binge Drinking Not on file 12/01 Comments No Sex and Gender Information Value Date Recorded Sex Assigned at Not on file 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 Gender Identity Not on file Sexual Orientation Not on file documented as of this encounter Plan of Treatment Not on file documented as of this encounter Procedures Procedure Name Priority Date/Time Associated Diagnosis Comments SCAN - LABS 03/24/2021 documented in this encounter Results * SCAN - LABS (03/24/2021) us Provider Scanning Final Result documented in this encounter Visit Diagnoses Not on filedocumented in this encounter Care Teams Change Of Address Clerk Relationship Specialty Start Date End Date Kemi Clifford MD [address] [place] [address] PCP - General Family Medicine 12/08/20 documented as of this encounter
--- OUTSIDE RECORDS SUMMARY | 2025-02-12 09:21 | XMS_ITS | Encounter Summary ---
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 Gender Identity Not on file Sexual Orientation Not on file documented as of this encounter Plan of Treatment Not on file documented as of this encounter Procedures Procedure Name Priority Date/Time Associated Diagnosis Comments SCAN - RADIOLOGY/IMAGING 03/20/2022 documented in this encounter Results * SCAN - RADIOLOGY/IMAGING (03/20/2022) Anatomical Region Laterality Modality Other us Provider Scanning Final Result documented in this encounter Visit Diagnoses Not on filedocumented in this encounter Care Teams Heel Boom Operator Relationship Specialty Start Date End Date Kemi Clifford MD [address] [facility] [address] [place] [address] PCP - General Family Medicine 12/08/20 documented as of this encounter
--- OUTSIDE RECORDS SUMMARY | 2025-02-12 09:21 | XMS_ITS | Encounter Summary ---
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 Gender Identity Not on file Sexual Orientation Not on file documented as of this encounter Plan of Treatment Not on file documented as of this encounter Procedures Procedure Name Priority Date/Time Associated Diagnosis Comments SCAN - LABS 10/25/2022 documented in this encounter Results * SCAN - LABS (10/25/2022) us Provider Scanning Final Result documented in this encounter Visit Diagnoses Not on filedocumented in this encounter Care Teams Java Technical Manager Relationship Specialty Start Date End Date Kemi Clifford MD [address] [place] [address] [facility] [place] [address] PCP - General Family Medicine 12/08/20 documented as of this encounter
--- OUTSIDE RECORDS SUMMARY | 2025-02-12 09:21 | XMS_ITS | Encounter Summary ---
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 Gender Identity Not on file Sexual Orientation Not on file documented as of this encounter Plan of Treatment Not on file documented as of this encounter Procedures Procedure Name Priority Date/Time Associated Diagnosis Comments SCAN - RADIOLOGY/IMAGING 02/12/2019 documented in this encounter Results * SCAN - RADIOLOGY/IMAGING (02/12/2019) Anatomical Region Laterality Modality Other us Provider Scanning Final Result documented in this encounter Visit Diagnoses Not on filedocumented in this encounter Care Teams Furnace Packer Relationship Specialty Start Date End Date Jan Catherine MD [address] [place] [address] PCP - General 12/20/16 12/07/20 Kemi Clifford MD [address] [facility] [address] [place] [address] PCP - General Family Medicine 12/08/20 documented as of this encounter
--- OUTSIDE RECORDS SUMMARY | 2025-02-12 09:21 | XMS_ITS | Encounter Summary ---
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 Gender Identity Not on file Sexual Orientation Not on file documented as of this encounter Plan of Treatment Not on file documented as of this encounter Procedures Procedure Name Priority Date/Time Associated Diagnosis Comments SCAN - LABS 08/08/2020 documented in this encounter Results * SCAN - LABS (08/08/2020) us Provider Scanning Final Result documented in this encounter Visit Diagnoses Not on filedocumented in this encounter Care Teams Coil Winder Relationship Specialty Start Date End Date Jan Catherine MD [address] [place] [address] PCP - General 12/20/16 12/07/20 Kemi Clifford MD [address] [facility] [address] [place] [address] PCP - General Family Medicine 12/08/20 documented as of this encounter
--- OUTSIDE RECORDS SUMMARY | 2025-02-12 09:21 | XMS_ITS ---
Author Organization [facility] Address [address] [place] [address] Care Team Providers Care Deputy Sheriff Chief Name Role Phone Kemi Clifford MD Primary Care Provider Active Problems Problem Noted Date Diagnosed Date [...] (08/02/2020): Added automatically from request for surgery [id number] Chest pain 08/02/2020 Overview (08/02/2020): Added automatically from request for surgery [id number] Closed fracture of right ankle with routine [...] ified site of right female breast 05/03/2011 Current Treatment and Therapy Plans No current plan information found. Past Treatment and Therapy Plans No past plan information found. 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
--- OUTSIDE RECORDS SUMMARY | 2025-02-12 09:21 | XMS_ITS | Encounter Summary ---
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 Gender Identity Not on file Sexual Orientation Not on file documented as of this encounter Plan of Treatment Not on file documented as of this encounter Procedures Procedure Name Priority Date/Time Associated Diagnosis Comments SCAN - RADIOLOGY/IMAGING 02/17/2020 documented in this encounter Results * SCAN - RADIOLOGY/IMAGING (02/17/2020) Anatomical Region Laterality Modality Other us Provider Scanning Final Result documented in this encounter Visit Diagnoses Not on filedocumented in this encounter Care Teams Electrical Subcontractor Relationship Specialty Start Date End Date Jan Catherine MD [address] [place] [address] PCP - General 12/20/16 12/07/20 Kemi [place] MD [address] [facility] [address] [place] [address] PCP - General Family Medicine 12/08/20 documented as of this encounter
--- OUTSIDE RECORDS SUMMARY | 2025-02-12 09:21 | XMS_ITS | Encounter Summary ---
Author Organization [facility] Address [address] [place] [address] Care Team Providers Care Database Security Administrator Name Role Phone Unavailable Primary Care Provider Unavailabl e Encounter Details Date Type Department Care Team (Late st Contact Info) Description 11/29/2022 Lab Requisition [facility] [address] [place] [id number] Melchor Plata MD [address] [place] [address] Social History Tobacco Use Types Packs/Day Years Used Date Smoking Tobacco: Never Assessed Comments Unknown Sex and Gender Information Value Date Recorded Sex Assigned at Not on file Legal Sex Female 6:22 AM CDT Gender Identity Not on file Sexual Orientation Not on file documented as of this encounter Plan of Treatment Not on file documented as of this encounter Procedures Procedure Name Priority Date/Time Associated Diagnosis Comments DERMATOPATHOLOGY Routine 11/27/2022 12:0 0 AM CDT documented in this encounter Results * DERMATOPATHOLOGY (11/27/2022 12:00 AM CDT) Case Report Dermatopathology Report Case: [id number] Authorizing Provider: Melchor Plata MD Collected: 11/27/2022 12:00 AM Ordering Location: [facility] Received: 11/29/2022 07:48 AM Pathologist: Arlette Nixon MD Specimen: Skin, right mid back 3 4:21 PM CDT DERMATOPATHOLOGY LABORATORY Final Diagnosis Specimen A. 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 SCC vs. Other. Path# [id number] 3 4:21 PM CDT DERMATOPATHOLOGY LABORATORY Gross Description Specimen A: Received is one formalin filled container labeled with the patient's name and designated right mid back. The specimen consists of a shave biopsy measuring [id number]. Jar 0. 3 4:21 PM CDT DERMATOPATHOLOGY LABORATORY Microscopic Description Specimen A. SKIN, right mid back: The epidermis shows parakeratosis, full thickness disorderly maturation of keratinocytes, and dyskeratotic cells. There is associated hyperkeratosis, parakeratosis, papillomatosis, and acanthosis of the epidermis. There is a lymphohistiocytic infiltrate within the papillary dermis that is focally lichenoid. 3 4:21 PM CDT DERMATOPATHOLOGY LABORATORY Disclaimer An external and internal positive and negative controls are appropriate for the histochemical, immunohistochemical and immunofluorescence stain(s) in this case (if any), except where stated explicitly. The performance characteristics of the stain(s) cited in this report were developed and its performance characteristic determined by the Dermatopathology Laboratory at [facility], directed by Dr. Quan Gibson. These tests need not be, and therefore are not, approved by the [place] Food and Drug Administration. The tests are used for clinical purposes. Billing Codes Specimen Charges Stain Charges 09429 1 3 4:21 PM CDT DERMATOPATHOLOGY LABORATORY Embedded Images 3 4:21 PM CDT DERMATOPATHOLOGY LABORATORY Pathology/Cytolog y TISSUE SPECIMEN FROM SKIN / Unknown 11/27/2022 11/29/2022 7:48 AM CDT us Melchor Plata MD LAB - PATHOLOGY/CYTOLOGY ORDER TIERRA Final Result DERMATOPATHOLOGY LABORATORY [facility] - Department of Dermatology [address], [address] [phone] documented in this encounter Visit Diagnoses Not on filedocumented in this encounter
--- OUTSIDE RECORDS SUMMARY | 2025-02-12 09:21 | XMS_ITS | Referral Summary ---
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 Gender Identity Not on file Sexual Orientation Not on file Last Filed Vital Signs Vital Sign Reading Time Taken Comments Blood Pressure 137/80 09/29/2024 12:31 PM REMOTE PILOT OPERATOR Pulse 75 09/29/2024 12:31 PM REMOTE PILOT OPERATOR Temperature 36.1 C (97 F) 09/29/2024 12:31 PM REMOTE PILOT OPERATOR Respiratory Rate 20 04/15/2024 1:23 PM CDT Oxygen Saturation 96% 09/29/2024 12:31 PM REMOTE PILOT OPERATOR Inhaled Oxygen Concentration - - Weight 80.3 kg (177 lb) 09/29/2024 12:31 PM REMOTE PILOT OPERATOR Height 162.6 cm (5' 4) 09/29/2024 12:31 PM REMOTE PILOT OPERATOR Body Mass Index 30.38 09/29/2024 12:31 PM REMOTE PILOT OPERATOR Plan of Treatment Not on file Procedures Procedure Name Priority Date/Time Associated Diagnosis [...] 90 - 130 mL/min/1. 73 m2 [facility] Comment: Interpretive Data Reference Interval Normal >/= [...] LAB BLOOD ORDERABLES Final Res ult [facility] Department [place] [address] * Lipid panel (12/19/2018 5:39 AM CDT) Cholesterol 131 30 - 199 mg/dL [facility] Comment: Interpretive Data Ages < or = [...] on 2018. Triglycerides 147 <=149 mg/dL [facility] Comment: Interpretive Data Ages < or = [...] revised on 2018. HDL 49 >=40 mg/dL [facility] Comment: Interpretive Data Ages < or = [...] on 2018. LDL, calculated 53 <=129 mg/dL [facility] Comment: Interpretive Data Ages < [...] revised on 2018. Non-HDL Cholesterol 82 mg/dL [facility] Comment: Interpretive Data Ages < [...] last revised on 2018. Chol/HDL ratio 3 [facility] Blood specimen (specimen) 12/19/2018 5:39 AM CDT 12/19/2018 6:37 AM CDT Narrative [facility] - 12/19/2018 8:25 AM CDT us Meet Guerrero MD LAB BLOOD ORDERABLES Final Res ult [facility] [place] [address] * (ABNORMAL) Hemoglobin A1c (12/18/2018 5:29 PM CDT) Hgb A1C 8.0(H) 4.0 - 5.6 % [facility] Estimated Average Glucose 183 mg/dL [facility] Comment: The ADA recommends reporting an estimated Average Glucose (eAG) with all Hemoglobin A1c results using the equation derived from a study of 507 normal and diabetic adults. Minority populations were underrepresented and children were not included. (Diabetes Care 31:2217-4860, 2008). The eAG is not equivalent to a fasting glucose. Blood specimen (specimen) 12/18/2018 5:29 PM CDT 12/18/2018 6:00 PM CDT [facility]ative [facility] - 12/18/2018 6:16 PM CDT Darling Ramirez REGIONAL GUIDE LAB BLOOD ORDERABLES Final Result [facility] Department [place] [address] from Last 3 Months or Most Recently Relevant to [place] [address] [facility] MEDICARE ADVANTAGE MEDICARE RESEARCH MEDICARE [facility] RE[facility] MEDIC[facility] ANTHEM ACCESS [facility] MDCR HMO [facility] MDCR HMO REF [facility] MDCR HMO REF Advance Directives For more information, please contact: [phone] * Full Code (Latest Code Status on File) Date Activated Date Inactivated Comments 08/19/2020 10:29 AM 08/20/2020 4:44 AM * Full Code Date Activated Date Inactivated Comments 12/18/2018 4:40 PM 12/19/2018 10:36 PM Care Teams Blasting Clay Miner Relationship Specialty Start Date End Date Kemi Clifford MD [address] [facility] [address] [place] [address] PCP - General Family Medicine 12/08/20
--- OUTSIDE RECORDS SUMMARY | 2025-02-12 09:21 | XMS_ITS | Clinical Summary ---
Author Organization [facility] Address [address] [place] [address] Care Team Providers Care Quality Assurance/R&D Lab Technician Name Role Phone Unavailable Primary Care Provider Unavailabl e Source Comments [facility],non-owned Affiliates and Associated Physician Practices is amultiple site organization consisting of ambulatory clinics and hospital sitesin [place], [place], [place] and [place]. This disclosure is being madepursuant to the Care Everywhere program and may not contain all information available regarding this patient. Last updated 18.[facility] [employer] Social History Tobacco Use Types Packs/Day Years Used Date Smoking Tobacco: Never Assessed Comments Unknown Sex and Gender Information Value Date Recorded Sex Assigned at Not on file Legal Sex Female 6:22 AM CDT Gender Identity Not on file Sexual Orientation Not on file Plan of Treatment Health Maintenance Due Date Last Done Comments BONE DENSITY TESTING 1942 DTAP/TDAP/TD VACCINES (1 - Tdap) 1961 PNEUMOCOCCAL VACCINE 50+ (1 of 1 - PCV) 01/16/1992 ZOSTER VACCINE (1 of 2) 01/16/1992 Respiratory Syncytial Virus (RSV) Vaccine Pt: or over 60 yrs (1 - 1-dose 75+ series) 2017 COVID-19 VACCINE ( - 2023-2 5 season) 2024 DEPRESSION SCREENING 09/02/2024 MEDICARE AWV CALENDAR YEAR 2024 INFLUENZA VACCINE (Season Ended) 2025 HEPATITIS B VACCINE Aged Out No longe r eligible based on patient's age to complete this topic HIB VACCINE Aged Out No longer eligi ble based on patient's age to complete this topic HPV VACCINE Aged Out No longer eligi ble based on patient's age to complete this topic MENINGOCOCCAL (Group B) VACC INE SHARED DECISION-MAKING Aged Out No longer eligibl e based on patient's age to complete this topic MENINGOCOCCAL GROUPS A/C/Y/W VACCINE Aged Out No longer eligible b ased on patient's age to complete this topic Insurance [facility] MANAGED MEDICARE ADV SELF PAY NO INSURANCE Member Subscriber Plan / Payer (Ef fective for All Dates) Name:Cynthia Sotelo Member ID:Not on file Relation to Subscriber:Not on file Name:CYNTHIA MEDINA Subscriber ID:Not on file (Home) Address: [address] [place] [address] [place] [address] Payer ID:Not on file Group ID:Not on file Type:Self Pay Address: [facility] MANAGED MEDICARE ADV SELF PAY NO INSURANCE Member Subscriber Plan / Payer (Ef fective for All Dates) Name:Cynthia Sotelo Member ID:Not on file Relation to Subscriber:Not on file Name:CYNTHIA MEDINA Subscriber ID:Not on file (Home) Address: [address] [place] [address] Payer ID:Not on file Group ID:Not on file Type:Self Pay Address: [facility] MANAGED MEDICARE ADV SELF PAY NO INSURANCE Member Subscriber Plan / Payer (Ef fective for All Dates) Name:Cynthia Sotelo Member ID:Not on file Relation to Subscriber:Not on file Name:CYNTHIA MEDINA Subscriber ID:Not on file (Home) Address: [address] [place] [address] Payer ID:Not on file Group ID:Not on file Type:Self Pay Address: [facility] MANAGED MEDICARE ADV
--- OUTSIDE RECORDS SUMMARY | 2025-02-12 09:21 | XMS_ITS | Encounter Summary ---
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 Gender Identity Not on file Sexual Orientation Not on file documented as of this encounter Plan of Treatment Not on file documented as of this encounter Procedures Procedure Name Priority Date/Time Associated Diagnosis Comments SCAN - RADIOLOGY/IMAGING 05/15/2024 documented in this encounter Results * SCAN - RADIOLOGY/IMAGING (05/15/2024) Anatomical Region Laterality Modality Other us Provider Scanning Edited Result - Final documented in this encounter Visit Diagnoses Not on filedocumented in this encounter Care Teams Filament Coil Winder Relationship Specialty Start Date End Date Kemi Clifford MD [address] [facility] [address] [place] [address] PCP - General Family Medicine 12/08/20 documented as of this encounter
== END 2025-02-12 09:16 | disposition home or self-care (01) ==
LOC: ANHIMG 09:17
PROVIDERS: PCP Family Medicine; Visit Provider Physician Assistant Medical
DX: Z12.31 Encounter for screening mammogram for malignant neoplasm of breast (principal)
CPT/HCPCS: 77063; 77067

== ENCOUNTER 2025-05-19 14:24 | Outpatient (CLI) | payer MEDICARE, SELFPAY ==
--- NOTE | ~2025-05-19 | XR_ITS ---
XR knee LT 3V 05/19/2025 14:58 Indication: Knee pain Procedure: 3 views left knee Comparison: 07/29/2015 Findings: Moderate tricompartment osteoarthritis. No fracture, subluxation or dislocation. There is chondrocalcinosis. No joint effusion. Impression: 1: Moderate tricompartment osteoarthritis of the left knee. Reviewed, dictated and finalized at location O. Impression: 1: Moderate tricompartment osteoarthritis of the left knee.
== END 2025-05-19 14:25 | disposition home or self-care (01) ==
LOC: MICIMG 14:25
PROVIDERS: PCP Family Medicine; Visit Provider Physician Assistant Medical
DX: M17.12 Unilateral primary osteoarthritis, left knee (principal)
CPT/HCPCS: 73562